=== PATIENT | female | born 1960 | race Caucasian/White ===

== ENCOUNTER 2018-09-30 09:04 | Observation (INO) ==
[2018-09-30] MEDS ORDERED: Ondansetron 4 MG/2 ML VIAL IVP ONE ×2 (09:26→10:27)
[2018-09-30] MEDS ORDERED: Ketorolac 15 MG/ML VIAL IVP ONE ×2 (09:26→21:13)
[2018-09-30] MEDS ORDERED: 0.9 % Sodium Chloride 1,000 ML IVC ONE (09:26)
--- NOTE | 2018-09-30 09:29 | Emergency Department Note ---
Disposition Clinical Impression: Small bowel obstruction Disposition: Admitted As Inpatient Condition: Fair Time of Disposition: 12:30 General Adult HPI - General Chief complaint: ED Nausea/Vomiting/Diarrhea Stated complaint: vomiting x3 days Time Seen by Provider: 09/30/18 09:06 Source: patient, family Limitations: no limitations Nursing Notes Reviewed: Yes Vital Signs Reviewed: Yes - History of Present Illness HPI Narrative: 58-year-old female presents with abdominal pain, nausea vomiting, and diarrhea for 3 days. Patient reported diffuse constant abdominal pain. She vomited multiple times whenever she tried to eat or drink. She reported dark color watery diarrhea 5-6 times a day. No chills and a fever. Surgical history including appendiectomy, cholecystectomy and hysterectomy. Patient had partial small bowel obstruction in 2018. Onset (ago): day(s) (3) Location: abdomen Pain Scale: 7 - Related Data Home Medications Medication Instructions Recorded Confirmed LORazepam [Ativan] 1 mg PO BID 07/28/15 09/30/18 Vortioxetine Hydrobromide 10 mg PO DAILY 03/17/17 09/30/18 [Trintellix] Previous Rx's Medication Instructions Recorded Albuterol Sulfate [Proventil Hfa] 6.7 gm IH Q4H PRN #1 [email or web address] 09/28/17 Allergies Allergy/AdvReac Type Severity Reaction Status Date / Time Warfarin Allergy Severe See Verified 03/17/17 20:34 Comments trazodone Allergy Unknown Swelling Verified 03/17/17 20:34 of Lip/Tongue/Throat gabapentin [From Neurontin] Allergy Dizziness Verified 03/17/17 20:34 nalbuphine [From Nubain] Allergy Irritable Verified 03/17/17 20:34 Naloxone [From Narcan] Allergy Rash Verified 03/17/17 20:34 acetaminophen [From Tylenol] AdvReac Unknown cannot Verified 03/17/17 20:34 take due to status of liver Constitutional: Denies: fever, chills Eyes: Denies: eye pain ENT ED: Denies: ear pain Cardiovascular: Denies: chest pain Respiratory: Denies: cough Gastrointestinal: Reports: abdominal pain, nausea, vomiting, diarrhea Genitourinary: Denies: urgency Musculoskeletal: Denies: back pain Integumentary: Denies: rash Neurological: Denies: headache Psychiatric: Denies: anxiety Endocrine: Denies: fatigue Hematological/Lymphatic: Denies: easy bleeding Allergic/Immunologic: Denies: facial swelling Past Medical History - Past Medical History Medical history: Reports: COPD, renal disease Surgical history: Reports: appendectomy, cholecystectomy (2009), hysterectomy (Total 1989), knee replacement, other (Bowel surgery ??) Psychiatric history: Reports: anxiety, ADHD, depression [employer]CIAL [employer]ENT history: Reports: non-contributory - Social History Smoking Status: Current every day smoker Smokeless Tobacco Status: No Alcohol use: Reports: none Drug use: Reports: none Physical Exam - General Limitations: no limitations General appearance: alert, in no apparent distress - Head Head exam: atraumatic - Eye Eye exam: Present: normal appearance - ENT ENT exam: normal exam - Neck Neck exam: Present: normal inspection - Chest Chest inspection: Present: normal inspection - Respiratory Respiratory exam: Present: normal lung sounds bilaterally - Cardiovascular Cardiovascular exam: Present: regular rate - Abdominal Exam Abdominal exam: Present: soft, tenderness Abdominal tenderness: Present: RLQ, LLQ - Extremities Exam Extremities exam: Present: normal inspection, full ROM. Absent: tenderness - Back Exam Back exam: Present: normal inspection, full ROM. Absent: tenderness - Neurological Exam Neurological exam: Present: alert, oriented X3 - Psychiatric Psychiatric exam: Present: normal affect - Skin Skin exam: Present: warm, intact Course Vital Signs Temperature 97.6 F 09/30/18 09:06 Pulse Rate 99 09/30/18 09:06 Respiratory Rate 16 09/30/18 09:06 Blood Pressure 190/119 09/30/18 09:06 O2 Sat by Pulse Oximetry 97 09/30/18 09:06 Temperature 99.8 F H 09/30/18 14:36 Pulse Rate 76 09/30/18 14:36 Respiratory Rate 16 09/30/18 14:36 Blood Pressure 179/98 09/30/18 14:36 O2 Sat by Pulse Oximetry 95 09/30/18 14:36 Oxygen Delivery Oxygen Delivery Room Air Medical Decision Making - [facility] Narrative Medical decision making narrative: 58 year old female with history of HIV, hypotension, stroke presents with abdominal pain, nausea, vomiting, diarrhea for 3 days. surgical history of appendiectomy, cholecystectomy and hysterectomy. Pt had partial small bowel ob struction last year. Pt is not on HIV medications. Pt denied taking any medication on daily base. Physical exam: bowel sounds normal, abdomen soft, generalized tender to palpation. Labs: white cell 11, slightly elevated, lipase normal, cmp unremarkable. abdomen ct indicated developing small bowel ob struction. Spoke with general surgeon: Dr. Russo. He suggested to admit pt to medical services. He will see the patient today. Spoke with Hospitalist Dr. Abernathy. Pt is accepted. NG tube inserted in ER. Dr. Clay has seen the patient and agrees the above plan. - Lab Data Lab results reviewed: Yes I reviewed the patient's lab results. Result diagrams: 09/30/18 09:56 09/30/18 09:56 Lab Results 09/30/18 09/30/18 09/30/18 Range/Units 09:31 09:31 09:56 WBC 11.2 H (4.3-11.1) K/mcL RBC 4.97 (3.82-4.97) M/mcL Hgb 16.7 H (11.5-15.4) g/dL Hct 47.8 H (35.3-44.9) % MCV 96.2 (83.0-100.0) fL MCH 33.6 H (28.0-33.3) pg MCHC 34.9 (31.6-35.5) g/dL RDW 12.5 (11.5-14.5) % Plt Count 240 (140-400) K/mcL MPV 10.0 (9.4-12.4) fL Immature Gran % 0.4 (0-4) % Seg Neutrophils % 82.8 % Lymphocytes % 12.2 % Monocytes % 4.2 % Eosinophils % 0.0 % Basophils % 0.4 % Neutrophils # 9.2 H (1.6-8.9) K/mcL Lymphocytes # 1.4 (0.6-4.6) K/mcL Monocytes # 0.5 (0.0-1.3) K/mcL Eosinophils # 0.0 (0.0-0.6) K/mcL Basophils # 0.0 (0.0-0.2) K/mcL PT (9.4-12.1) Seconds INR Sodium (136-145) mEq/L Potassium (3.5-5.1) mEq/L Chloride (98-107) mEq/L Carbon Dioxide (23-29) mEq/L BUN (6-20) mg/dL Creatinine (0.60-1.20) mg/dL Est GFR ( Amer) (> 60) Est GFR (Non-Af Amer) (> 60) BUN/Creatinine Ratio (6-26) Glucose (70-105) mg/dL Calculated Osmolality (280-300) Calcium (8.6-10.3) mg/dL Venous Ioniz Calcium (1.15-1.35) mmol/L Total Bilirubin (0.3-1.0) mg/dL AST (13-39) Units/L ALT (7-52) Units/L Alkaline Phosphatase (34-104) Units/L Serum Total Protein (6.4-8.9) g/dL Albumin (3.5-5.7) g/dL Globulin (2.4-3.5) g/dL Albumin/Globulin Ratio (1.1-2.2) Lipase (11-82) Units/L PTH Intact (10.0-65.0) pg/ml Urine Color Dark Yellow (Yellow) Urine Clarity Clear (Clear) Urine pH 6.0 (5.0-8.0) pH Units Ur Specific [place] 1.024 (1.010-1.025) Urine Protein 100 H (Neg-Trace) mg/dL Urine Glucose (UA) Normal (Normal) mg/dL Urine Ketones Trace H (Negative) mg/dL Urine Blood Negative (Negative) Urine Nitrite Negative (Negative) Urine Bilirubin Small H (Negative) Urine Urobilinogen Normal (Normal) mg/dL Ur Leukocyte Esterase Negative (Negative) Urine Microscopic RBC 0-3 (0-3) per hpf Urine Microscopic WBC 0-3 (0-3) per hpf Ur Squamous Epith Cells Many H (None-Few) per lpf Urine Bacteria None Seen (None-Few) per hpf Hyaline Casts None Seen (None-Few) per lpf Ur Culture Indicated? NO (NO) Urine Opiates Screen Positive H (Bkvnot=427) ng/mL Ur Barbiturates Screen Negative (Cexrmc=457) ng/mL Ur Phencyclidine Scrn Negative (Cutoff=25) ng/mL Ur Amphetamines Screen Positive H (Yaolqs=5306) ng/mL U Benzodiazepines Scrn Negative (Gudxri=274) ng/mL Urine Cocaine Screen Negative (Cutoff= 300) ng/mL U Marijuana (THC) Screen Negative (Cutoff = 50) ng/mL Ur Drug Screen Interp See Below 09/30/18 09/30/18 09/30/18 Range/Units 09:56 09:56 09:56 WBC (4.3-11.1) K/mcL RBC (3.82-4.97) M/mcL Hgb (11.5-15.4) g/dL Hct (35.3-44.9) % MCV (83.0-100.0) fL MCH (28.0-33.3) pg MCHC (31.6-35.5) g/dL RDW (11.5-14.5) % Plt Count (140-400) K/mcL MPV (9.4-12.4) fL Immature Gran % (0-4) % Seg Neutrophils % % Lymphocytes % % Monocytes % % Eosinophils % % Basophils % % Neutrophils # (1.6-8.9) K/mcL Lymphocytes # (0.6-4.6) K/mcL Monocytes # (0.0-1.3) K/mcL Eosinophils # (0.0-0.6) K/mcL Basophils # (0.0-0.2) K/mcL PT 10.6 (9.4-12.1) Seconds INR 0.9 Sodium 139 (136-145) mEq/L Potassium 3.8 (3.5-5.1) mEq/L Chloride 100 (98-107) mEq/L Carbon Dioxide 24 (23-29) mEq/L BUN 22 H (6-20) mg/dL Creatinine 1.02 (0.60-1.20) mg/dL Est GFR ( Amer) > 60 (> 60) Est GFR (Non-Af Amer) 55 L (> 60) BUN/Creatinine Ratio 22 (6-26) Glucose 115 H (70-105) mg/dL Calculated Osmolality 292 (280-300) Calcium 10.8 H (8.6-10.3) mg/dL Venous Ioniz Calcium (1.15-1.35) mmol/L Total Bilirubin 0.5 (0.3-1.0) mg/dL AST 19 (13-39) Units/L ALT 16 (7-52) Units/L Alkaline Phosphatase 134 H (34-104) Units/L Serum Total Protein 7.9 (6.4-8.9) g/dL Albumin 4.6 (3.5-5.7) g/dL Globulin 3.3 (2.4-3.5) g/dL Albumin/Globulin Ratio 1.4 (1.1-2.2) Lipase 28 (11-82) Units/L PTH Intact 34.9 (10.0-65.0) pg/ml Urine Color (Yellow) Urine Clarity (Clear) Urine pH (5.0-8.0) pH Units Ur Specific [place] (1.010-1.025) Urine Protein (Neg-Trace) mg/dL Urine Glucose (UA) (Normal) mg/dL Urine Ketones (Negative) mg/dL Urine Blood (Negative) Urine Nitrite (Negative) Urine Bilirubin (Negative) Urine Urobilinogen (Normal) mg/dL Ur Leukocyte Esterase (Negative) Urine Microscopic RBC (0-3) per hpf Urine Microscopic WBC (0-3) per hpf Ur Squamous Epith Cells (None-Few) per lpf Urine Bacteria (None-Few) per hpf Hyaline Casts (None-Few) per lpf Ur Culture Indicated? (NO) Urine Opiates Screen (Emeapw=433) ng/mL Ur Barbiturates Screen (Bszhyn=940) ng/mL Ur Phencyclidine Scrn (Cutoff=25) ng/mL Ur Amphetamines Screen (Vvnbbk=4890) ng/mL U Benzodiazepines Scrn (Afsico=498) ng/mL Urine Cocaine Screen (Cutoff= 300) ng/mL U Marijuana (THC) Screen (Cutoff = 50) ng/mL Ur Drug Screen Interp 09/30/18 Range/Units 13:02 WBC (4.3-11.1) K/mcL RBC (3.82-4.97) M/mcL Hgb (11.5-15.4) g/dL Hct (35.3-44.9) % MCV (83.0-100.0) fL MCH (28.0-33.3) pg MCHC (31.6-35.5) g/dL RDW (11.5-14.5) % Plt Count (140-400) K/mcL MPV (9.4-12.4) fL Immature Gran % (0-4) % Seg Neutrophils % % Lymphocytes % % Monocytes % % Eosinophils % % Basophils % % Neutrophils # (1.6-8.9) K/mcL Lymphocytes # (0.6-4.6) K/mcL Monocytes # (0.0-1.3) K/mcL Eosinophils # (0.0-0.6) K/mcL Basophils # (0.0-0.2) K/mcL PT (9.4-12.1) Seconds INR Sodium (136-145) mEq/L Potassium (3.5-5.1) mEq/L Chloride (98-107) mEq/L Carbon Dioxide (23-29) mEq/L BUN (6-20) mg/dL Creatinine (0.60-1.20) mg/dL Est GFR ( Amer) (> 60) Est GFR (Non-Af Amer) (> 60) BUN/Creatinine Ratio (6-26) Glucose (70-105) mg/dL Calculated Osmolality (280-300) Calcium (8.6-10.3) mg/dL Venous Ioniz Calcium 1.15 (1.15-1.35) mmol/L Total Bilirubin (0.3-1.0) mg/dL AST (13-39) Units/L ALT (7-52) Units/L Alkaline Phosphatase (34-104) Units/L Serum Total Protein (6.4-8.9) g/dL Albumin (3.5-5.7) g/dL Globulin (2.4-3.5) g/dL Albumin/Globulin Ratio (1.1-2.2) Lipase (11-82) Units/L PTH Intact (10.0-65.0) pg/ml Urine Color (Yellow) Urine Clarity (Clear) Urine pH (5.0-8.0) pH Units Ur Specific [place] (1.010-1.025) Urine Protein (Neg-Trace) mg/dL Urine Glucose (UA) (Normal) mg/dL Urine Ketones (Negative) mg/dL Urine Blood (Negative) Urine Nitrite (Negative) Urine Bilirubin (Negative) Urine Urobilinogen (Normal) mg/dL Ur Leukocyte Esterase (Negative) Urine Microscopic RBC (0-3) per hpf Urine Microscopic WBC (0-3) per hpf Ur Squamous Epith Cells (None-Few) per lpf Urine Bacteria (None-Few) per hpf Hyaline Casts (None-Few) per lpf Ur Culture Indicated? (NO) Urine Opiates Screen (Qbgjzw=994) ng/mL Ur Barbiturates Screen (Ullrmn=065) ng/mL Ur Phencyclidine Scrn (Cutoff=25) ng/mL Ur Amphetamines Screen (Exzboi=0749) ng/mL U Benzodiazepines Scrn (Qllgfr=779) ng/mL Urine Cocaine Screen (Cutoff= 300) ng/mL U Marijuana (THC) Screen (Cutoff = 50) ng/mL Ur Drug Screen Interp - Radiology Data Radiology results reviewed: Yes I reviewed the patient's radiology results. HISTORY: ORDERING SYSTEM PROVIDED HISTORY: abd pain FINDINGS: Lower Chest: No evidence of pneumonia or other acute findings. Organs: No non contrast evidence of acute process of the organs of the abdomen. No evidence of pancreatitis. No ureteral stone or hydronephrosis. Exophytic cyst of the right kidney measuring 2.5 cm. GI/Bowel: There is fluid filled dilation of multiple proximal small bowel loops, with dilation up to 4.7 cm. There is distal small bowel collapse. The colon is collapsed as well. Pelvis: No acute abnormality of the pelvis. Normal appearance of the bladder. Peritoneum/Retroperitoneum: No free air, free fluid or abscess. Bones/Soft Tissues: No fracture or other acute osseous process. CT/CT abd pelvis wo no iv no oral IMPRESSION: Findings suspicious for developing distal small bowel obstruction. D/ / Salinas Alford MD / Salinas Alford MD Interpreting Provider: Salinas Alford MD Attestation Statement - Attestation Attestation: Patient was seen with physician contact center assistant. I reviewed the history, physical, assessment and plan, and agree with the findings. I also personally evaluated this patient and had [id number] time with this patient. 58-year-old female presents emergency department with nausea vomiting abdominal pain for last 3 days. Progressively getting worse. Not able keep anything down. Came in for evaluation treatment. No specific areas of the abdomen are painful. She says a crampy pain that generally associated with immediate vomiting. Denies diarrhea. Denies blood in vomit or stool. No fevers or chills. Denies chest pain or short of breath. Review of systems as above mid are negative. Physical exam vital signs were stable but she was hypertensive. ENT is unremarkable. Heart regular rhythm and rate. Lungs clear. Abdomen is soft no guarding rigidity. Diffusely tender. No masses. Neurologically intact. Skin no rashes. Extremities unremarkable. Psych normal. ED course. CT scan will be obtained. Labs are largely unremarkable. Nausea was controlled. Patient was given IV hydration and nausea medicine. Hemodyna mically she was improved throughout her stay. CT scan however revealed a developing small bowel obstruction. We consult surgery recommended admission to the hospitalist service. NG tube was placed. We contacted the hospitalist agreed to accept the patient for admission. We did treat the patient's hypertension with a dose of hydralazine. Hemodynamically otherwise the patient remained stable while here. She will be admitted to the hospitalist service for further evaluation and treatment. Agree with the physician contact center assistant assessment and plan.
[2018-09-30 09:45] LABS: Bilirubin,Urine Small (Negative); Blood,Urine Negative (Negative); Clarity,Urine Clear (Clear); Color,Urine Dark Yellow (Yellow); Glucose,Urine (UA) Normal (Normal); Ketones,Urine Trace mg/dL (Negative); Leukocyte Esterase,Urine Negative (Negative); Nitrite,Urine Negative (Negative); Protein,Urine 100 mg/dL (Neg-Trace); Specific Gravity,Urine 1.024 (1.010-1.025); Urobilinogen,Urine Normal (Normal)
[2018-09-30 09:47] LABS: Bacteria,Urine None Seen per hpf (None-Few); Hyaline Casts,Urine None Seen per lpf (None-Few); RBC,Urine 0-3 per hpf (0-3); Squamous Epithelial Cell,Urine Many per lpf (None-Few); WBC,Urine 0-3 per hpf (0-3)
[2018-09-30 10:19] LABS: Basophils % 0.4 %; Hematocrit 47.8 % (35.3-44.9); Hemoglobin 16.7 g/dL (11.5-15.4); Immature Granulocytes % 0.4 % (0-4); Lymphocytes # 1.4 K/mcL (0.6-4.6); Lymphocytes % 12.2 %; Mean Corpuscular HGB Conc 34.9 g/dL (31.6-35.5); Mean Corpuscular Hemoglobin 33.6 pg (28.0-33.3); Mean Corpuscular Volume 96.2 fL (83.0-100.0); Monocytes # 0.5 K/mcL (0.0-1.3); Monocytes % 4.2 %; Neutrophils # 9.2 K/mcL (1.6-8.9); Platelet Count 240 K/mcL (140-400); Red Blood Count 4.97 M/mcL (3.82-4.97); Red Cell Distribution Width 12.5 % (11.5-14.5); Segmented Neutrophils % 82.8 %; White Blood Count 11.2 K/mcL (4.3-11.1)
[2018-09-30 10:33] LABS: Alanine Aminotransferase 16 Units/L (7-52); Albumin 4.6 g/dL (3.5-5.7); Albumin/Globulin Ratio 1.4 (1.1-2.2); Alkaline Phosphatase 134 Units/L (34-104); Aspartate Amino Transferase 19 Units/L (13-39); BUN/Creatinine Ratio 22 (6-26); Bilirubin,Total 0.5 mg/dL (0.3-1.0); Blood Urea Nitrogen 22 mg/dL (6-20); Calcium 10.8 mg/dL (8.6-10.3); Carbon Dioxide 24 mEq/L (23-29); Chloride 100 mEq/L (98-107); Globulin 3.3 g/dL (2.4-3.5); Glucose 115 mg/dL (70-105); Lipase 28 Units/L (11-82); Osmolality,Calculated 292 (280-300); Potassium 3.8 mEq/L (3.5-5.1); Sodium 139 mEq/L (136-145); Total Protein 7.9 g/dL (6.4-8.9); eGFR For African Americans > 60 (> 60); eGFR For Non-African Americans 55 (> 60)
[2018-09-30 10:51] LABS: Amphetamine Screen,Urine Positive ng/mL (Cutoff=1000); Barbiturate Screen,Urine Negative ng/mL (Cutoff=200)
[2018-09-30 10:55] LABS: Benzodiazepines Screen,Urine Negative ng/mL (Cutoff=300); Cannabinoid Screen,Urine Negative ng/mL (Cutoff = 50); Cocaine Screen,Urine Negative ng/mL (Cutoff= 300)
[2018-09-30 10:56] LABS: Opiate Screen,Urine Positive ng/mL (Cutoff=300); Phencyclidine Screen,Urine Negative ng/mL (Cutoff=25)
[2018-09-30] MEDS ORDERED: *HR* FentaNYL (PF) 100 MCG/2 ML VIAL IVP ONE (11:19)
[2018-09-30 11:51] LABS: INR 0.9; Prothrombin Time 10.6 Seconds (9.4-12.1)
--- NOTE | 2018-09-30 12:30 | Internal Med History&Physical ---
Date of Encounter: 09/30/18 Time of Encounter: 12:26 Internal Medicine - H&P: HPI Chief complaint: Abdomunal pain History of present illness: 58-year-old female presents emergency department with persistent 3 days history of abdominal pain associated with persistent nausea , vomiting or the extent that she cannot keep anything down. The patient described the abdominal pain as crampy in character with no radiation no alleviating factor or aggravating factor. The patient stated that she was initially vomiting food content and later become just yellowish fluid. The patient denies blood per rectum. She denies fever, chills, chest pain, shortness of breath, orthopnea, paroxysmal nocturnal dyspnea, progressive worsening of lower extremity edema. It was noted that the patient blood pressure during her ER stay was around 195/95, she denies history of hypertension. The patient stated that she has history of HIV and she should be on medication, however she stopped taking them 6 months ago, she believes that she is now HIV negative. The patient has history of cholecystectomy, appendicectomy and hysterectomy. CT scan of the abdomen was obtained and revealed possibility of small bowel obstruction. Surgery was consulted and they recommended NG tube placement and to admit the patient to the hospitalist, surgery or see the patient in consult for further evaluation and management. Past Med Surg Social Fam HX - Past Medical History Medical history: COPD, renal disease Additional medical history: cellulitis, clots. SVC syndrome, HIV + Psychiatric history: anxiety, ADHD, depression - Past Surgical History Surgical History: appendectomy, cholecystectomy (2009), hysterectomy (Total 1989), knee replacement, other (Bowel surgery ??) Additional surgical history: seven knee surgeries - Social History Smoking Status: Current every day smoker Smokeless Tobacco Status: No Alcohol use: none Drug use: none Internal Medicine - H&P: Meds LORazepam [Ativan] 1 mg PO BID 07/28/15 [History] Vortioxetine Hydrobromide [Trintellix] 10 mg PO DAILY 03/17/17 [History] Albuterol Sulfate [Proventil Hfa] 2 puff IH Q4H PRN 09/30/18 [History] Allergy/AdvReac Type Severity Reaction Status Date / Time Warfarin Allergy Severe See Verified 03/17/17 20:34 Comments trazodone Allergy Unknown Swelling Verified 03/17/17 20:34 of Lip/Tongue/Throat gabapentin [From Neurontin] Allergy Dizziness Verified 03/17/17 20:34 nalbuphine [From Nubain] Allergy Irritable Verified 03/17/17 20:34 Naloxone [From Narcan] Allergy Rash Verified 03/17/17 20:34 acetaminophen [From Tylenol] AdvReac Unknown cannot Verified 03/17/17 20:34 take due to status of liver All Systems PM: A 10-system review of systems was performed and is negative for pertinent findings except as documented above in the HPI. - Constitutional Vitals: Temp Pulse Resp BP Pulse Ox 97.6 F 71 18 164/94 99 09/30/18 09:06 09/30/18 11:31 09/30/18 11:31 09/30/18 11:31 09/30/18 11:31 General appearance: Present: cachectic, A&O X 3 Exam: ` - Head Head exam: Present: atraumatic, normocephalic - Neck Neck exam general surgery: Present: supple, trachea midline. Absent: lymph adenopathy - Respiratory Respiratory exam: Present: CTAB. Absent: accessory muscle use, rales, rhonchi, wheezes - Cardiovascular Cardiovascular exam: Present: RRR, +S1, +S2. Absent: diastolic murmur, gallop, rubs, systolic murmur - GI/Abdominal GI/Abdominal exam: Present: normal bowel sounds, soft, tenderness, no peritoneal signs. Absent: distended - Extremities Exam Extremities exam: Present: warm, radial pulses palpable and symmetrical. Absent: calf tenderness, cyanotic, pedal edema Internal Med - H&P Results - Labs CBC & Chem 7: 09/30/18 09:56 09/30/18 09:56 Labs: Short CBC 09/30/18 Range/Units 09:56 WBC 11.2 H (4.3-11.1) K/mcL Hgb 16.7 H (11.5-15.4) g/dL Hct 47.8 H (35.3-44.9) % Plt Count 240 (140-400) K/mcL Neutrophils # 9.2 H (1.6-8.9) K/mcL BMP 09/30/18 09:56 Sodium 139 Potassium 3.8 Chloride 100 Carbon Dioxide 24 BUN 22 H Creatinine 1.02 Glucose 115 H Calcium 10.8 H Liver Function 09/30/18 Range/Units 09:56 Total Bilirubin 0.5 (0.3-1.0) mg/dL AST 19 (13-39) Units/L ALT 16 (7-52) Units/L Alkaline Phosphatase 134 H (34-104) Units/L Albumin 4.6 (3.5-5.7) g/dL Urine 09/30/18 Range/Units 09:31 Urine Color Dark Yellow (Yellow) Urine Clarity Clear (Clear) Urine pH 6.0 (5.0-8.0) pH Units Ur Specific [place] 1.024 (1.010-1.025) Urine Protein 100 H (Neg-Trace) mg/dL Urine Glucose (UA) Normal (Normal) mg/dL - Impressions ITS Impressions Abdomen/Pelvis CT 09/30/18 09:23 IMPRESSION: Findings suspicious for developing distal small bowel obstruction. D/ / Salinas Alford MD / Salinas Alford MD Interpreting Provider: Salinas Alford MD Chest X-Ray 09/30/18 11:45 IMPRESSION: Nasogastric tube side port projects over the lower mediastinum, likely within the distal esophagus. Recommend advancing nasogastric tube approximately 10 cm. No acute cardiopulmonary process. The findings were sent to the Radiology Results Communication Center at 12:20 pm on 09/30/2018to be communicated to a licensed caregiver. D/ / Helena Benites MD / Helena Benites MD Interpreting Provider: Helena Benites MD - Assessment and Plan (1) Small bowel obstruction Current Visit: Yes Status: Acute Assessment and plan: The patient presented with crampy abdominal pain associated with nausea and vomiting to the extent that she cannot keep anything down, CT scan of the abdomen was obtained and revealed possibility of small bowel obstruction. Surgery was consulted and they recommended NG tube placement and to admit the patient to the hospitalist, surgery or see the patient in consult for further evaluation and management. NG tube was placed for decompression, continue IV hydration and Pain control. (2) HIV (human immunodeficiency virus infection) Current Visit: No Status: Chronic Assessment and plan: The patient stated that she has history of HIV and she should be on medication, however she stopped taking them 6 months ago, she believes that she is now HIV negative. We will consult ID to resume her HIV management. Qualifiers: Qualified Code(s): B20 - Human immunodeficiency virus [HIV] disease (3) Hepatitis Current Visit: No Status: Chronic (4) Polysubstance abuse Current Visit: No Status: Chronic Assessment and plan: Urine analysis is positive for opioids and amphetamine, will monitor closely for possible withdrawal (5) Tobacco abuse Current Visit: No Status: Chronic (6) DVT prophylaxis Current Visit: Yes Status: Acute Assessment and plan: We will place SCDs (7) Hypercalcemia Current Visit: Yes Status: Acute Assessment and plan: We will obtain ionized calcium, parathyroid hormone, and start IV fluid hydration with isotonic saline. - Time Spent With Patient Total time spent is greater than 50% in coordination of care (as documented) at patient's floor/unit and/or counseling patient:
[2018-09-30] MEDS ORDERED: *HR* Morphine 2 MG/ML SYRINGE IVP ONE ×2 (12:39→15:56)
[2018-09-30] MEDS ORDERED: Naloxone 0.4 MG/ML INJ IVP PRN (12:39)
[2018-09-30 13:05] LABS: VBG Ionized Calcium 1.15 mmol/L (1.15-1.35)
[2018-09-30] MEDS ORDERED: Ondansetron 4 MG/2 ML VIAL IVP PRN (13:14)
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
[2018-09-30] MEDS: 0.9 % Sodium Chloride 1,000 ML IVC SCH ×2 (16:01→23:06)
[2018-09-30] MEDS: Pantoprazole 40 MG VIAL IVP SCH (17:49)
[2018-09-30] MEDS ORDERED: traMADol 50 MG TABLET PO ONE (19:47)
[2018-09-30] MEDS: *HR* Promethazine 25 MG/ML VIAL IVP PRN (20:42)
[2018-10-01] MEDS: *HR* Promethazine 25 MG/ML VIAL IVP PRN ×3 (00:48→17:17)
[2018-10-01] MEDS: Ketorolac 15 MG/ML VIAL IVP PRN ×3 (02:22→17:17)
[2018-10-01] MEDS: Pantoprazole 40 MG VIAL IVP SCH ×2 (05:18→18:30)
[2018-10-01 07:31] LABS: Basophils % 0.4 %; Eosinophils # 0.1 K/mcL (0.0-0.6); Eosinophils % 0.5 %; Hematocrit 42.8 % (35.3-44.9); Immature Granulocytes % 0.2 % (0-4); Lymphocytes # 2.3 K/mcL (0.6-4.6); Lymphocytes % 22.4 %; Mean Corpuscular HGB Conc 34.8 g/dL (31.6-35.5); Mean Corpuscular Hemoglobin 33.7 pg (28.0-33.3); Mean Corpuscular Volume 96.8 fL (83.0-100.0); Mean Platelet Volume 10.2 fL (9.4-12.4); Monocytes # 0.7 K/mcL (0.0-1.3); Platelet Count 192 K/mcL (140-400); Red Blood Count 4.42 M/mcL (3.82-4.97); Red Cell Distribution Width 12.8 % (11.5-14.5); Segmented Neutrophils % 69.5 %; White Blood Count 10.1 K/mcL (4.3-11.1)
[2018-10-01 07:34] LABS: Hemoglobin 14.9 g/dL (11.5-15.4)
[2018-10-01 07:39] LABS: Prothrombin Time 11.2 Seconds (9.4-12.1)
[2018-10-01 07:42] LABS: Activated Partial Thrombo Time 35.3 Seconds (26.0-36.0)
[2018-10-01 07:51] LABS: Alanine Aminotransferase 13 Units/L (7-52); Albumin 3.8 g/dL (3.5-5.7); Albumin/Globulin Ratio 1.5 (1.1-2.2); Alkaline Phosphatase 107 Units/L (34-104); Aspartate Amino Transferase 17 Units/L (13-39); BUN/Creatinine Ratio 22 (6-26); Bilirubin,Total 0.5 mg/dL (0.3-1.0); Blood Urea Nitrogen 20 mg/dL (6-20); Calcium 8.8 mg/dL (8.6-10.3); Carbon Dioxide 23 mEq/L (23-29); Chloride 105 mEq/L (98-107); Chol/HDL Ratio 3.2 (0-4.9); Cholesterol 188 mg/dL (< 200); Globulin 2.6 g/dL (2.4-3.5); Glucose 96 mg/dL (70-105); HDL Cholesterol 59 mg/dL (40-59); LDL Cholesterol,Calculated 107 mg/dL (0-99); Magnesium 1.9 mg/dL (1.6-2.6); Osmolality,Calculated 294 (280-300); Phosphorous 3.1 mg/dL (2.7-4.5); Potassium 3.4 mEq/L (3.5-5.1); Sodium 141 mEq/L (136-145); Total Protein 6.4 g/dL (6.4-8.9); Triglycerides 109 mg/dL (< 150); eGFR For African Americans > 60 (> 60); eGFR For Non-African Americans > 60 (> 60)
--- NOTE | 2018-10-01 10:22 | AcuteCareSurgery Progress Note ---
Date of Encounter: 10/01/18 Time of Encounter: 10:21 - Assessment and Plan (1) Small bowel obstruction Current Visit: Yes Status: Acute Presents with nausea, vomiting, abdominal pain, diarrhea History of partial small bowel obstruction. Prior germinal surgeries include hysterectomy, cholecystectomy, appendectomy Multiple comorbidities-HIV, CVA, CKD stage III, hypertension, DVT, brain aneurysm, chronic pain, anxiety, depression. CT abdomen [id number] dilation of multiple proximal small bowel loops with dilation up to 4.7 cm, distal small bowel collapse, colon is collapsed as well. Findings suspicious for developing distal small bowel obstruction. Benign exam. Unclear if pain secondary to small bowel obstruction versus chronic pain versus gastroenteritis. Continue IV fluids, to DC if patient able to tolerate diet Continue pain control Zofran for nausea Continue to monitor I's and O's Will clamp NG tube Trial clear liquid diet. If the patient able to tolerate, NG tube to be removed. (2) Nausea & vomiting Current Visit: Yes Status: Acute Improved Last episode of vomitus yesterday, continues to be nauseous Suspect secondary to possible small bowel obstruction versus gastroenteritis versus chronic pain Qualifiers: Vomiting type: bilious vomiting Qualified Code(s): R11.14 - Bilious vomiting (3) Abdominal pain Current Visit: Yes Status: Acute Continues to complain of abdominal pain CPAP for management Qualifiers: Abdominal location: periumbilical Qualified Code(s): R10.33 - Periumbilical pain (4) DVT prophylaxis Current Visit: Yes Status: Acute History of DVT SCDs currently, consider sq heparin Subjective Narrative: Patient seen and examined at bedside today. She states that she is still having some left upper quadrant and periumbilical pain. She states that her pain is uncontrolled. She states that she continues to be nauseous however her last episode of vomitus was yesterday. She does admit to passing flatus but no bowel movement at this time. She denies fever, chills, chest pain, shortness of breath, dysuria, calf pain. Objective Vital Signs - Last 8 Hours Temp Pulse Resp BP Pulse Ox 10/01/18 06:53 98.7 F 60 14 170/87 95 10/01/18 03:40 98.6 F 63 16 176/84 95 Intake and Output 09/30/18 10/01/18 10/01/18 23:59 07:59 15:59 Intake Total 1000 / 1999 0 / 0 Output Total 500 / 500 1500 / 1500 Balance 500 / 1500 -1500 / -1500 Intake: IV Fluids 1000 / 1999 0.9 % Sodium Chloride 1,000 ML 1000 / 1000 @ 150 mls/hr IVC .[id number] [facility] Rx #:[id number] Oral 0 / 0 0 / 0 Output: Urine 800 / 800 Gastric Tube Lavage Amount 50 / 50 250 / 250 Right Nare 50 / 50 250 / 250 Gastric Drainage 450 / 450 450 / 450 Other: Meal NPO # Voids 1 Weight 56.6 kg Blood Glucose* 116 119 Patient Weight 10/01/18 23:59 Weight 56.6 kg - General physical appearance well developed (Mild distress), well nourished - Eyes PERRL, normal ocular movement - ENT normal nares, normal mucosa, no hearing loss, no congestion - Neck Neck exam: no masses, trachea midline, no venous distension - Respiratory normal expansion, normal respiratory effort, clear to percussion, clear to auscultation - Cardiovascular Cardiovascular exam: Present: RRR, no murmurs/rubs/gallops. Absent: JVD - Abdomen Abdomen: Present: bowel sounds present, soft, tender. Absent: distended, guarding, rebound Abdominal Tenderness: LUQ - Integumentary no rash, no growths, no abnormal pigmentation - Neurologic normal coordination, normal sensation - Musculoskeletal normal posture - Psychiatric oriented to time, oriented to person, oriented to place, speech is normal, memory intact - Labs 10/01/18 06:59 10/01/18 06:59 Diabetes panel 09/30/18 10/01/18 Range/Units 09:56 06:59 Sodium 139 141 (136-145) mEq/L Potassium 3.8 3.4 L (3.5-5.1) mEq/L Chloride 100 105 (98-107) mEq/L Carbon Dioxide 24 23 (23-29) mEq/L BUN 22 H 20 (6-20) mg/dL Creatinine 1.02 0.91 (0.60-1.20) mg/dL Glucose 115 H 96 (70-105) mg/dL Calcium 10.8 H 8.8 (8.6-10.3) mg/dL AST 19 17 (13-39) Units/L ALT 16 13 (7-52) Units/L Alkaline Phosphatase 134 H 107 H (34-104) Units/L Albumin 4.6 3.8 (3.5-5.7) g/dL Triglycerides 109 (< 150) mg/dL HDL Cholesterol 59 (40-59) mg/dL Calcium panel 09/30/18 10/01/18 Range/Units 09:56 06:59 Calcium 10.8 H 8.8 (8.6-10.3) mg/dL Phosphorus 3.1 (2.7-4.5) mg/dL Albumin 4.6 3.8 (3.5-5.7) g/dL Pituitary panel 09/30/18 10/01/18 Range/Units 09:56 06:59 Sodium 139 141 (136-145) mEq/L Potassium 3.8 3.4 L (3.5-5.1) mEq/L Chloride 100 105 (98-107) mEq/L Carbon Dioxide 24 23 (23-29) mEq/L BUN 22 H 20 (6-20) mg/dL Creatinine 1.02 0.91 (0.60-1.20) mg/dL Glucose 115 H 96 (70-105) mg/dL Calcium 10.8 H 8.8 (8.6-10.3) mg/dL Adrenal panel 09/30/18 10/01/18 Range/Units 09:56 06:59 Sodium 139 141 (136-145) mEq/L Potassium 3.8 3.4 L (3.5-5.1) mEq/L Chloride 100 105 (98-107) mEq/L Carbon Dioxide 24 23 (23-29) mEq/L BUN 22 H 20 (6-20) mg/dL Creatinine 1.02 0.91 (0.60-1.20) mg/dL Glucose 115 H 96 (70-105) mg/dL Calcium 10.8 H 8.8 (8.6-10.3) mg/dL Total Bilirubin 0.5 0.5 (0.3-1.0) mg/dL AST 19 17 (13-39) Units/L ALT 16 13 (7-52) Units/L Alkaline Phosphatase 134 H 107 H (34-104) Units/L Albumin 4.6 3.8 (3.5-5.7) g/dL Consult Discharge Plan - Plan Referrals: Elfego Dorantes MD [Primary Care Provider] -
--- NOTE | 2018-10-01 10:22 | Internal Med Progress Note ---
Hospitalist Progress Note - Encounter Date of Encounter: 10/01/18 Time of Encounter: 09:21 - Subjective Interval History: Patient seen and examined this morning it was up in no acute overnight events. Is not complaining of significant abdominal pain and right leg pain. Has an NG tube with about 450 mL of drainage recorded. Denies any fevers or chills. Is passing gas but has not had bowel movement. - Exam Vitals: Temp Pulse Resp BP Pulse Ox 98.7 F 60 14 170/87 95 10/01/18 06:53 10/01/18 06:53 10/01/18 06:53 10/01/18 06:53 10/01/18 06:53 Exam: General: In mild distress. Respiratory exam: CTAB. no accessory muscle use, rales, rhonchi, wheezes Cardiovascular exam: RRR, +S1, +S2. no murmur, gallop, rubs. GI/Abdominal exam: Generalized tenderness cristel in RLQ,RUQ, LLQ. Non-distended, normal bowel sounds, soft, no peritoneal signs. surgical scars noted. Extremities exam: no pedal edema, pulses palpable in b/l lower extremities. no calf tenderness Neurological exam: CN II-XII intact, AO X3, no focal deficits. Skin exam: No skin rash - Assessment and Plan (1) HIV (human immunodeficiency virus infection) Current Visit: No Status: Chronic (2) Polysubstance abuse Current Visit: No Status: Chronic (3) DVT prophylaxis Current Visit: Yes Status: Acute (4) Hepatitis Current Visit: No Status: Chronic (5) Tobacco abuse Current Visit: No Status: Chronic (6) Small bowel obstruction Current Visit: Yes Status: Acute (7) Hypercalcemia Current Visit: Yes Status: Acute - Summary of Assessment and Plan Summary of Assessment and Plan: Assessment Acute Small bowel obstruction HIV Hypercalcemia Positive utox for amephatamine. Chronic Chronic opiate use Smoker COPD Anxiety, depression Chronic pain ?HIV h/o DVT Plan - CT abd/pelvis with finding suspicious of distal small bowel obstruction. Previous multiple abdominal surgery including hysterectomy, cholecystectomy, appendectomy - Patient with NGT. Surgery following. Progress diet per surgery. c/w IVF till then. symptomatic control - Patient in on morphine at home for chronic pain, confirmed by pharmacist. Patient c/w significant abdominal pain and worried about withdrawal. currently NPO. Will start prn fentanyl small dose. Discussed effect on gut motility. Some suspicious of drug abuse with positive utox for amphetamine noted on 2016 admission as well. Patient denying it. will avoid any benzodiazapine and not prescribe opiate on discharge and allow f/u with pain management. - start prn hydralazine for Blood pressure. patient denies being on home medication. Currently being confirmed. Will resume when taking PO. - hypercalcemia resolved. Possibly related to dehyration. Normal PTH and ionized ca. - Unclear h/o HIV. Positive HSV noted. Previously on HIV medications now stopped. negative RNA levels noted this year in August with cd4 in 863 in 10/2017. ID consulted. Medications being confirmed. - Discussed smoking cessation. Not in COPD exacerbation - SCDs for DVT. - Time Spent with Patient Total time spent is greater than 50% in coordination of care (as documented) at patient's floor/unit and/or counseling patient: Internal Medicine: Result - Labs CBC & Chem 7: 10/01/18 06:59 10/01/18 06:59 Labs: Short CBC 10/01/18 Range/Units 06:59 WBC 10.1 (4.3-11.1) K/mcL Hgb 14.9 D (11.5-15.4) g/dL Hct 42.8 (35.3-44.9) % Plt Count 192 (140-400) K/mcL Neutrophils # 7.0 (1.6-8.9) K/mcL BMP 09/30/18 10/01/18 09:56 06:59 Sodium 139 141 Potassium 3.8 3.4 L Chloride 100 105 Carbon Dioxide 24 23 BUN 22 H 20 Creatinine 1.02 0.91 Glucose 115 H 96 Calcium 10.8 H 8.8 Liver Function 09/30/18 10/01/18 Range/Units 09:56 06:59 Total Bilirubin 0.5 0.5 (0.3-1.0) mg/dL AST 19 17 (13-39) Units/L ALT 16 13 (7-52) Units/L Alkaline Phosphatase 134 H 107 H (34-104) Units/L Albumin 4.6 3.8 (3.5-5.7) g/dL - ABG Interpretation ABG results: PT/INR, D-dimer PT 11.2 Seconds (9.4-12.1) 10/01/18 06:59 - Impressions Impressions Abdomen/Pelvis CT 09/30/18 09:23 IMPRESSION: Findings suspicious for developing distal small bowel obstruction. D/ / Salinas Alford MD / Salinas Alford MD Interpreting Provider: Salinas Alford MD Chest X-Ray 09/30/18 11:45 IMPRESSION: Nasogastric tube side port projects over the lower mediastinum, likely within the distal esophagus. Recommend advancing nasogastric tube approximately 10 cm. No acute cardiopulmonary process. The findings were sent to the Radiology Results [facility] at 12:20 pm on 09/30/2018to be communicated to a licensed caregiver. D/ / Helena Benites MD / Helena Benites MD Interpreting Provider: Helena Benites MD Consult Discharge Plan - Plan Referrals: Elfego Dorantes MD [Primary Care Provider] - __ (1) HIV (human immunodeficiency virus infection) Qualifiers: Qualified Code(s): B20 - Human immunodeficiency virus [HIV] disease
[2018-10-01] MEDS: *HR* FentaNYL (PF) 100 MCG/2 ML VIAL IVP PRN (11:32)
--- NOTE | 2018-10-01 11:51 | Infectious Disease Consult ---
Infectious Disease-Consult - Encounter Date/Time Date of Encounter: 10/01/18 Time of Encounter: 10:00 - Data of Consult Patient: new to practice Reason for consult: HIV management Consult date: 10/01/18 Requesting Physician: Bita Valladares Primary Care Provider: Elfego Dorantes MD - HPI HPI: Mrs. Riddle is a 58-year-old woman who presented to [facility] due to nausea and vomiting on 09/30/18 and was diagnosed with a small bowel obstruction. Infectious disease was consulted today due to patient's long-standing history of HIV for recommendations on management. In short, Ms. Riddle is a 58-year-old woman with history of COPD and renal disease as well as a documented history of HIV and prior AIDS who presented to the emergency department on 09/30/18 due to 3 day history of abdominal pain with persistent nausea and vomiting. This was not associated with any infectious symptoms including fever, chills, sweats. At that time, she was found to have a mild leukocytosis with a WBC 11.2, however her labs were otherwise normal. She had a CT of the abdomen and pelvis at that time which showed suspicious findings for a distal small bowel obstruction. She denied any diarrhea prior to this experience. The patient does have history of HIV/AIDS, with notes of prior infection with pneumocystis pneumonia numerous years ago. She remembers that at that time she had a number of unusual infections that she was told people with normal immune systems don't typically get. The patient does not know when she wa s diagnosed with HIV, however she says that it was quite a while back. She does not know how she got HIV however she suspects that it was from a blood transfusion that she had when she gave . For reference, the patient had a total hysterectomy in 1989. She has been on medication since that time without discontinuing, and has had virtually no problems. It was noted that the patient had stopped taking her medicines approximately 6 months ago, however this apparently is an error. The patient states that she transition to a new medication a couple of months ago for her HIV, and she does not know what the name of it is. She says that she has been undetectable for as long as she can remember. She does have some concerns or suspicions that she does not even have to disease at this point. At the time the patient has no acute complaints. - ROS Review of Systems: Constitutional: Denies fevers, chills, weight loss, generalized fatigue Head/Neck: Denies FRAIRE, neck stiffness EENT: Denies vision changes/blurriness, rhinorrhea, congestion, sore throat CVS: Denies chest pain, palpitations, MCGILL, orthopnea, edema, PND Pulm: Denies SOB, cough, sputum, hemoptysis, wheezing GI: Admits to generalized abdominal pain, nausea, vomiting. Denies diarrhea, constipation, melena. : Denies dysuria, increased frequency, urgency, hematuria Heme: Denies ease of bleeding or bruising MSK: Denies joint pain, limited ROM Skin: Denies rashes, ulcers, color changes Neuro: Denies FRAIRE, paresthesias, focal deficits, ataxia - Results CBC & Chem 7: 10/01/18 06:59 10/01/18 06:59 - Exam Vitals: Temp Pulse Resp BP Pulse Ox 98.7 F 60 14 170/87 95 10/01/18 06:53 10/01/18 06:53 10/01/18 06:53 10/01/18 06:53 10/01/18 06:53 Exam: Gen: Vitals noted. No acute distress. Eyes: anicteric sclerae, moist conjunctivae; no lid-lag; Pupils equal and reactive to light HENT: Atraumatic; oropharynx clear with moist mucous membranes and no mucosal ulcerations; normal hard and soft palate. NG tube in place with no maceration noted. Neck: Trachea midline; supple, no thyromegaly or lymphadenopathy Cardiac: RRR, no murmur, +S1/S2 Pulmonary: CTA bilaterally, no wheezes, rales or rhonchi, equal chest expansion Abdomen: soft, generally tender, no guarding. No masses or hepatosplenomegaly MSK: ROM intact, no joint swelling noted Extremities: no BLE edema, nontender calf, no cyanosis or clubbing Skin: Normal temperature, turgor and texture; no rash, ulcers or subcutaneous nodules Neuro: moves all extremities, no focal deficits. Psych: Appropriate mood and behavior. A&Ox3 LORazepam [Ativan] 1 mg PO BID 07/28/15 [History] Vortioxetine Hydrobromide [Trintellix] 10 mg PO DAILY 03/17/17 [History] Albuterol Sulfate [Proventil Hfa] 2 puff IH Q4H PRN 09/30/18 [History] Dextroamphetamine/Amphetamine [Adderall 20 mg Tablet] 20 mg PO BID 10/01/18 [History] Dolutegravir/Rilpivirine [Juluca 50-25 mg Tablet] 1 tab PO DAILY 10/01/18 [History] Indapamide [Lozol] 1.25 mg PO DAILY 10/01/18 [History] LORazepam [Ativan] 2 mg PO HS 10/01/18 [History] Morphine Sulfate SR (12 HR) [MS Contin] 30 mg PO Q8H 10/01/18 [History] Spironolactone [Aldactone] 12.5 mg PO DAILY 10/01/18 [History] Allergy/AdvReac Type Severity Reaction Status Date / Time Warfarin Allergy Severe See Verified 03/17/17 20:34 Comments trazodone Allergy Unknown Swelling Verified 03/17/17 20:34 of Lip/Tongue/Throat gabapentin [From Neurontin] Allergy Dizziness Verified 03/17/17 20:34 nalbuphine [From Nubain] Allergy Irritable Verified 03/17/17 20:34 Naloxone [From Narcan] Allergy Rash Verified 03/17/17 20:34 acetaminophen [From Tylenol] AdvReac Unknown cannot Verified 03/17/17 20:34 take due to status of liver - Assessment and Plan (1) HIV (human immunodeficiency virus infection) Current Visit: Yes Status: Chronic Chronic history of HIV, undetectable Patient has apparently had HIV for unknown number of years, however it has been a long time She suspects that it was from a transfusion during one of her births, the patient has had a hysterectomy in 1989 She is currently on the medication Juluca per her PCP, recently switched about 2 months ago At this time, no modifications need to be made As there are no IV medications for the management of HIV, the most appropriate option is to continue the patient's home meds when she is able to tolerate PO meds. She should follow-up with PCP when she is out of the hospital. Thank you for involving us in this patient's care, we will sign off at this time. Please call us for any further questions. Qualifiers: HIV symptom status: asymptomatic Qualified Code(s): Z21 - Asymptomatic human immunodeficiency virus [HIV] infection status SNOMED Code(s): 43564444 (2) Small bowel obstruction Current Visit: Yes Status: Acute Small bowel obstruction, presumably secondary to adhesions from prior abdominal surgeries Management per acute-care surgery and primary team This does complicate HIV management as the patient's unable to take oral meds at this time Recommend continuing by mouth meds when she is able SNOMED Code(s): 503145958 (3) Nausea & vomiting Current Visit: Yes Status: Acute Management per primary team Qualifiers: Vomiting type: bilious vomiting Qualified Code(s): R11.14 - Bilious vomiting SNOMED Code(s): 93875801 Past Med Surg Social Fam HX - Past Medical History Medical history: COPD, renal disease Additional medical history: cellulitis, clots. SVC syndrome, HIV + Psychiatric history: anxiety, ADHD, depression - Past Surgical History Surgical History: appendectomy, cholecystectomy (2009), hysterectomy (Total 1989), knee replacement, other (Bowel surgery ??) Additional surgical history: seven knee surgeries - Social History Smoking Status: Current every day smoker Smokeless Tobacco Status: No Alcohol use: none Drug use: none Consult Discharge Plan - Plan Referrals: Elfego Dorantes MD [Primary Care Provider] - - Attending Attestation I examined this patient and my medical decision-making was reviewed with the Resident Physician. I agree with the documented findings, disposition and treatment plan as described except to the extent set forth below. This is an addendum to original report dictated by resident physician. Please refer to resident's note for full details. Patient is a 58-year-old woman who was diagnosed with HIV AIDS back in the early . Patient does not know how she acquired. She is only sexually active with her and has been negative she never cheated on him. Patient also denies any history of IV drug use. She thinks it was due to blood transfusion. Patient was on Atripla until recently where she was switched to JULUCA. I did speak with Dr. Dorantes and went over the patient's history. Assessment and plan: 1.HIVviral load undetectable since 2013 with CD4 over 500 very well controlled currently on Juluca. 2.Small bowel obstruction etiology not clear could be due to adhesions from previous surgeries 3.Severe anxiety. Patient usually on SSRI and Ativan 1 mg by mouth twice a day and every 2 mg daily at bedtime. Patient has not been taking any of her medications because she is nothing by mouth 4.Tobacco abuse she smokes 2 packs a day Recommendations: Okay to resume her HIV medication. We do not carry JUluca so patient was instructed to get her medications from home and restarted Started the patient on nicotine patch 21 mg daily at bedtime Patient is very irritable and going through withdrawals from stopping the Ativan and the SSRI, I will start the patient on Ativan 1 mg IV every 12 hours [id number] I called Dr. Benites and told him that I started and he was okay with that.
[2018-10-01] MEDS: Nicotine 21 MG PATCH.TD24 TD SCH (18:38)
[2018-10-01] MEDS ORDERED: Promethazine 12.5 MG in 0.9 % Sodium Chloride 50 ML IVPB PRN (20:00)
[2018-10-01] MEDS ORDERED: traMADol 50 MG TABLET PO ONE (21:53)
[2018-10-01] MEDS ORDERED: *HR* LORazepam 1 MG TABLET PO ONE (22:31)
[2018-10-01] MEDS: *HR* LORazepam 2 MG/ML VIAL IVP SCH (23:31)
[2018-10-02] MEDS: *HR* FentaNYL (PF) 100 MCG/2 ML VIAL IVP PRN (00:08)
[2018-10-02] MEDS ORDERED: traMADol 50 MG TABLET PO ONE (04:45)
[2018-10-02] MEDS: *HR* LORazepam 2 MG/ML VIAL IVP SCH (06:16)
[2018-10-02] MEDS: Pantoprazole 40 MG VIAL IVP SCH ×2 (06:19→18:09)
[2018-10-02 07:39] LABS: Basophils # 0.1 K/mcL (0.0-0.2); Basophils % 0.6 %; Eosinophils # 0.2 K/mcL (0.0-0.6); Eosinophils % 1.8 %; Hematocrit 42.3 % (35.3-44.9); Hemoglobin 14.8 g/dL (11.5-15.4); Immature Granulocytes % 0.3 % (0-4); Lymphocytes # 1.9 K/mcL (0.6-4.6); Lymphocytes % 22.1 %; Mean Corpuscular Hemoglobin 33.3 pg (28.0-33.3); Mean Corpuscular Volume 95.3 fL (83.0-100.0); Monocytes # 0.8 K/mcL (0.0-1.3); Neutrophils # 5.8 K/mcL (1.6-8.9); Platelet Count 183 K/mcL (140-400); Red Blood Count 4.44 M/mcL (3.82-4.97); Red Cell Distribution Width 12.3 % (11.5-14.5); Segmented Neutrophils % 66.2 %; White Blood Count 8.8 K/mcL (4.3-11.1)
[2018-10-02 07:43] LABS: BUN/Creatinine Ratio 24 (6-26); Blood Urea Nitrogen 19 mg/dL (6-20); Calcium 9.2 mg/dL (8.6-10.3); Carbon Dioxide 23 mEq/L (23-29); Chloride 103 mEq/L (98-107); Glucose 97 mg/dL (70-105); Osmolality,Calculated 284 (280-300); Potassium 3.1 mEq/L (3.5-5.1); Sodium 136 mEq/L (136-145); eGFR For African Americans > 60 (> 60); eGFR For Non-African Americans > 60 (> 60)
[2018-10-02] MEDS ORDERED: MORPHINE SUL Oral CONC 10 MG/0.5 ML ORAL.SYG SL PRN (08:33)
[2018-10-02] MEDS ORDERED: Ketorolac 15 MG/ML VIAL IVP PRN (08:51)
[2018-10-02] MEDS ORDERED: *HR* LORazepam 1 MG TABLET PO SCH ×3 (09:00→21:00)
[2018-10-02] MEDS: Nicotine 21 MG PATCH.TD24 TD SCH (09:32)
[2018-10-02] MEDS: Spironolactone 25 MG TABLET PO SCH (09:32)
[2018-10-02] MEDS: MORPHINE SUL Oral CONC 10 MG/0.5 ML ORAL.SYG SL PRN ×2 (09:33→18:09)
--- NOTE | 2018-10-02 10:25 | AcuteCareSurgery Progress Note ---
Date of Encounter: 10/02/18 Time of Encounter: 07:45 - Assessment and Plan (1) Small bowel obstruction Current Visit: Yes Status: Acute REsolved. D/c NG, ADAT. Surgery will sign off, please call or reconsult if questions or needs arise. Subjective Narrative: Denies nausea. Reports chronic pain, flatus, no BM Objective Vital Signs - Last 8 Hours Temp Pulse Resp BP Pulse Ox 10/02/18 07:22 98.5 F 73 18 167/92 93 10/02/18 04:27 98.1 F 67 18 163/87 92 Intake and Output 10/01/18 10/02/18 10/02/18 23:59 07:59 15:59 Intake Total 0 / 0 Output Total 0 / 0 Balance 0 / 0 Intake: Oral 0 / 0 Output: Urine 0 / 0 - General physical appearance no distress - ENT atraumatic, normocephalic - Respiratory normal expansion, normal respiratory effort - Cardiovascular Cardiovascular exam: Present: RRR - Abdomen Abdomen: Present: bowel sounds present, soft, non tender - Labs 10/02/18 07:03 10/02/18 07:03 Diabetes panel 10/02/18 Range/Units 07:03 Sodium 136 (136-145) mEq/L Potassium 3.1 L (3.5-5.1) mEq/L Chloride 103 (98-107) mEq/L Carbon Dioxide 23 (23-29) mEq/L BUN 19 (6-20) mg/dL Creatinine 0.78 (0.60-1.20) mg/dL Glucose 97 (70-105) mg/dL Calcium 9.2 (8.6-10.3) mg/dL Calcium panel 10/02/18 Range/Units 07:03 Calcium 9.2 (8.6-10.3) mg/dL Pituitary panel 10/02/18 Range/Units 07:03 Sodium 136 (136-145) mEq/L Potassium 3.1 L (3.5-5.1) mEq/L Chloride 103 (98-107) mEq/L Carbon Dioxide 23 (23-29) mEq/L BUN 19 (6-20) mg/dL Creatinine 0.78 (0.60-1.20) mg/dL Glucose 97 (70-105) mg/dL Calcium 9.2 (8.6-10.3) mg/dL Adrenal panel 10/02/18 Range/Units 07:03 Sodium 136 (136-145) mEq/L Potassium 3.1 L (3.5-5.1) mEq/L Chloride 103 (98-107) mEq/L Carbon Dioxide 23 (23-29) mEq/L BUN 19 (6-20) mg/dL Creatinine 0.78 (0.60-1.20) mg/dL Glucose 97 (70-105) mg/dL Calcium 9.2 (8.6-10.3) mg/dL Consult Discharge Plan - Plan Referrals: Elfego Dorantes MD [Primary Care Provider] -
--- NOTE | 2018-10-02 12:24 | Internal Med Progress Note ---
Hospitalist Progress Note - Encounter Date of Encounter: 10/02/18 Time of Encounter: 10:30 - Subjective Interval History: Tolerated clear liquid diet yesterday while having NGT clamped. No chest pain, SOB, or diarrhea. - Exam Vitals: Temp Pulse Resp BP Pulse Ox 98.9 F 70 18 161/94 95 10/02/18 12:18 10/02/18 12:18 10/02/18 12:18 10/02/18 12:18 10/02/18 12:18 Exam: General: not in distress. Respiratory exam: CTAB. no accessory muscle use, rales, rhonchi, wheezes Cardiovascular exam: RRR, +S1, +S2. no murmur, gallop, rubs. GI/Abdominal exam: Minimal LLQ tenderness without rebound/guarding/rigidity. Non-distended, normal bowel sounds, soft. Extremities exam: no pedal edema, pulses palpable in b/l lower extremities. no calf tenderness Neurological exam: CN II-XII intact, AO X3, no focal deficits. - Assessment and Plan (1) Small bowel obstruction Current Visit: Yes Status: Acute Assessment and Plan: distal SBO vs. ileus from chronic opioid use, improving appreciate surgery consult, NGT to be removed today advance diet tonight, if she does well today, will discharge her home tomorrow replete K+ (2) HIV (human immunodeficiency virus infection) Current Visit: Yes Status: Chronic Assessment and Plan: resume home meds (3) Hepatitis Current Visit: No Status: Chronic Assessment and Plan: resume home meds (4) Tobacco abuse Current Visit: No Status: Chronic Assessment and Plan: counseling provided NRT (5) Hypercalcemia Current Visit: Yes Status: Resolved (6) DVT prophylaxis Current Visit: Yes Status: Acute Assessment and Plan: EPCD - Time Spent with Patient Total time spent is greater than 50% in coordination of care (as documented) at patient's floor/unit and/or counseling patient: 25 - 35 minutes Plan of Care Discussed with: patient Internal Medicine: Result - Labs CBC & Chem 7: 10/02/18 07:03 10/02/18 07:03 Labs: Short CBC 10/02/18 Range/Units 07:03 WBC 8.8 (4.3-11.1) K/mcL Hgb 14.8 (11.5-15.4) g/dL Hct 42.3 (35.3-44.9) % Plt Count 183 (140-400) K/mcL Neutrophils # 5.8 (1.6-8.9) K/mcL BMP 10/02/18 07:03 Sodium 136 Potassium 3.1 L Chloride 103 Carbon Dioxide 23 BUN 19 Creatinine 0.78 Glucose 97 Calcium 9.2 - ABG Interpretation ABG results: PT/INR, D-dimer PT 11.2 Seconds (9.4-12.1) 10/01/18 06:59 Consult Discharge Plan - Plan Referrals: Elfego Dorantes MD [Primary Care Provider] - (2) HIV (human immunodeficiency virus infection) Qualifiers: HIV symptom status: asymptomatic Qualified Code(s): Z21 - Asymptomatic human immunodeficiency virus [HIV] infection status
[2018-10-02] MEDS: (Dextroamphetamine/Amphetamine [Adderall 20 Mg Tablet PO SCH ×2 (13:24→21:02)
[2018-10-02] MEDS: RILPIVIRINE PO SCH (13:25)
[2018-10-02] MEDS: DOLUTEGRAVIR PO SCH (13:25)
[2018-10-02] MEDS: *HR* LORazepam 1 MG TABLET PO SCH (13:31)
[2018-10-03] MEDS: MORPHINE SUL Oral CONC 10 MG/0.5 ML ORAL.SYG SL PRN ×3 (00:44→14:39)
[2018-10-03 05:21] LABS: Hematocrit 44.4 % (35.3-44.9); Hemoglobin 15.3 g/dL (11.5-15.4); Mean Corpuscular HGB Conc 34.5 g/dL (31.6-35.5); Mean Corpuscular Volume 95.7 fL (83.0-100.0); Mean Platelet Volume 10.1 fL (9.4-12.4); Platelet Count 191 K/mcL (140-400); Red Blood Count 4.64 M/mcL (3.82-4.97); Red Cell Distribution Width 12.5 % (11.5-14.5); White Blood Count 5.8 K/mcL (4.3-11.1)
[2018-10-03 05:39] LABS: BUN/Creatinine Ratio 28 (6-26); Blood Urea Nitrogen 24 mg/dL (6-20); Calcium 8.9 mg/dL (8.6-10.3); Carbon Dioxide 23 mEq/L (23-29); Chloride 104 mEq/L (98-107); Glucose 95 mg/dL (70-105); Magnesium 2.1 mg/dL (1.6-2.6); Osmolality,Calculated 286 (280-300); Potassium 3.6 mEq/L (3.5-5.1); Sodium 136 mEq/L (136-145); eGFR For African Americans > 60 (> 60); eGFR For Non-African Americans > 60 (> 60)
[2018-10-03] MEDS: Pantoprazole 40 MG VIAL IVP SCH ×2 (05:56→16:31)
[2018-10-03] MEDS: Nicotine 21 MG PATCH.TD24 TD SCH (08:36)
[2018-10-03] MEDS: Spironolactone 25 MG TABLET PO SCH (08:38)
[2018-10-03] MEDS: (Dextroamphetamine/Amphetamine [Adderall 20 Mg Tablet PO SCH (08:38)
[2018-10-03] MEDS: *HR* LORazepam 1 MG TABLET PO SCH ×2 (08:38→13:59)
[2018-10-03] MEDS: RILPIVIRINE PO SCH (08:38)
[2018-10-03] MEDS: DOLUTEGRAVIR PO SCH (08:38)
--- NOTE | 2018-10-03 09:43 | Discharge Summary ---
- NOTES TO OUTPATIENT PROVIDER Notes to Outpatient Provider: Follow up with surgery when necessary Orders not resulted at time of discharge: Pending orders 09/30/18 12:04 Culture,Blood [] Stat Date of Encounter: 10/03/18 Time of Encounter: 07:45 - Discharge Diagnosis (1) Small bowel obstruction Priority: Primary Status: Acute (2) HIV (human immunodeficiency virus infection) Priority: Secondary Status: Chronic Qualifiers: HIV symptom status: asymptomatic Qualified Code(s): Z21 - Asymptomatic human immunodeficiency virus [HIV] infection status (3) Hepatitis Priority: Secondary Status: Chronic (4) Tobacco abuse Priority: Secondary Status: Chronic (5) Hypercalcemia Priority: Secondary Status: Resolved (6) DVT prophylaxis Priority: Secondary Status: Acute Hospital course: Ms. Riddle is a 58 year old female with history of HIV, multiple abdominal surgeries, chronic pain on long-term opioids, who was admitted for abdominal vimal n associated with nausea. She was found to have developing distal small bowel obstruction and was managed conservatively with surgical consultation. Required NGT insertion as well. She clinically improved and NGT was subsequently taken out on 10/02 with successful advancement of her diet. She will be discharged on bowel regimen and was also advised to speak to her pain doc to adjust her opioids if possible. PRN surgery follow up as outpatient. Discharge discussed with: patient, nurse, compliance consultant - Time Spent with Patient Total time spent providing and/or coordinating discharge services: 29 mins - Discharge Medications Prescriptions: New Docusate [Colace] 100 mg PO BID #30 capsule Polyethylene Glycol 3350 [MiraLAX] 17 gm PO DAILY #14 powd.pack Continued LORazepam [Ativan] 1 mg PO BID Vortioxetine Hydrobromide [Trintellix] 10 mg PO DAILY Albuterol Sulfate [Proventil Hfa] 2 puff IH Q4H PRN PRN Reason: Wheezing Dextroamphetamine/Amphetamine [Adderall 20 mg Tablet] 20 mg PO BID Morphine Sulfate SR (12 HR) [MS Contin] 30 mg PO Q8H Dolutegravir/Rilpivirine [Juluca 50-25 mg Tablet] 1 tab PO DAILY Spironolactone [Aldactone] 12.5 mg PO DAILY LORazepam [Ativan] 2 mg PO HS Indapamide [Lozol] 1.25 mg PO DAILY Home Medications: LORazepam [Ativan] 1 mg PO BID 07/28/15 [History] Vortioxetine Hydrobromide [Trintellix] 10 mg PO DAILY 03/17/17 [History] Albuterol Sulfate [Proventil Hfa] 2 puff IH Q4H PRN 09/30/18 [History] Dextroamphetamine/Amphetamine [Adderall 20 mg Tablet] 20 mg PO BID 10/01/18 [History] Dolutegravir/Rilpivirine [Juluca 50-25 mg Tablet] 1 tab PO DAILY 10/01/18 [History] Indapamide [Lozol] 1.25 mg PO DAILY 10/01/18 [History] LORazepam [Ativan] 2 mg PO HS 10/01/18 [History] Morphine Sulfate SR (12 HR) [MS Contin] 30 mg PO Q8H 10/01/18 [History] Spironolactone [Aldactone] 12.5 mg PO DAILY 10/01/18 [History] Docusate [Colace] 100 mg PO BID #30 capsule 10/03/18 [Rx] Polyethylene Glycol 3350 [MiraLAX] 17 gm PO DAILY #14 powd.pack 10/03/18 [Rx] Allergies/Adverse Reactions: Allergy/AdvReac Type Severity Reaction Status Date / Time Warfarin Allergy Severe See Verified 03/17/17 20:34 Comments trazodone Allergy Unknown Swelling Verified 03/17/17 20:34 of Lip/Tongue/Throat gabapentin [From Neurontin] Allergy Dizziness Verified 03/17/17 20:34 nalbuphine [From Nubain] Allergy Irritable Verified 03/17/17 20:34 Naloxone [From Narcan] Allergy Rash Verified 03/17/17 20:34 acetaminophen [From Tylenol] AdvReac Unknown cannot Verified 03/17/17 20:34 take due to status of liver Date of admission: 09/30/18 13:29 Primary care physician: Elfego Dorantes MD Consults: 09/30/18 11:07 Consult to Surgery [CONS] Stat Consulting Provider: [facility] Reason for Consult: small bowel obstruction Call Completed: Yes 10/01/18 07:23 Consult to Infectious Diseases [CONS] Routine Consulting Provider: Infectious Disease [facility] Reason for Consult: h/o HIV Call Completed: No 10/01/18 18:29 Consult to Invasive Line Access Team [CONS] Routine Reason for Consult: limited IV access Line Type: EPIV PICC line indications: Limited vascular access - Constitutional Vitals: Temp Pulse Resp BP Pulse Ox 98.3 F 62 16 145/86 95 10/03/18 06:31 10/03/18 06:31 10/03/18 06:31 10/03/18 06:31 10/03/18 06:31 General appearance: Present: cachectic, A&O X 3 Exam: General: not in distress. Respiratory exam: CTAB. no accessory muscle use, rales, rhonchi, wheezes Cardiovascular exam: RRR, +S1, +S2. no murmur, gallop, rubs. GI/Abdominal exam: Minimal LLQ tenderness without rebound/guarding/rigidity. Non-distended, normal bowel sounds, soft. Extremities exam: no pedal edema, pulses palpable in b/l lower extremities. no calf tenderness Neurological exam: CN II-XII intact, AO X3, no focal deficits. - Patient Status Disposition: Home, Self-Care Condition: Fair Functional capacity at discharge: independent ambulation - Discharge Instructions Follow Up With: Elfego Dorantes MD [Primary Care Provider] - - Diet and Activity Activity: resume usual activities as tolerated Diet: advance to your usual diet
[2018-10-03] MEDS ORDERED: Ondansetron ODT 4 MG TAB.RAPDIS SL PRN (13:24)
[2018-10-03 14:32] VITALS: BP 103/66
== END 2018-10-03 17:58 | disposition home or self-care (01) ==
LOC: 3ANU 09:04 → EMEROOARM 09:04 → SUATTDRO 13:29 → 3ANU 14:05
PROVIDERS: ADMIT Internal Medicine Nephrology; ATTEND Internal Medicine

== ENCOUNTER 2019-01-02 17:48 | Observation (INO) ==
[2019-01-02] MEDS ORDERED: Metoclopramide 10 MG/2 ML VIAL IVP ONE (18:06)
[2019-01-02 18:46] LABS: Basophils # 0.1 K/mcL (0.0-0.2); Basophils % 0.4 %; Eosinophils # 0.1 K/mcL (0.0-0.6); Eosinophils % 0.7 %; Hematocrit 46.8 % (35.3-44.9); Hemoglobin 16.3 g/dL (11.5-15.4); Immature Granulocytes % 0.5 % (0-4); Lymphocytes # 2.9 K/mcL (0.6-4.6); Mean Corpuscular HGB Conc 34.8 g/dL (31.6-35.5); Mean Corpuscular Hemoglobin 34.1 pg (28.0-33.3); Mean Corpuscular Volume 97.9 fL (83.0-100.0); Mean Platelet Volume 9.5 fL (9.4-12.4); Monocytes # 0.9 K/mcL (0.0-1.3); Monocytes % 5.9 %; Platelet Count 267 K/mcL (140-400); Red Blood Count 4.78 M/mcL (3.82-4.97); Red Cell Distribution Width 13.2 % (11.5-14.5); Segmented Neutrophils % 74.5 %
[2019-01-02 18:53] LABS: INR 0.9; Prothrombin Time 10.1 Seconds (9.4-12.1)
[2019-01-02 18:55] LABS: Activated Partial Thrombo Time 31.9 Seconds (26.0-36.0); BUN/Creatinine Ratio 32 (6-26); Blood Urea Nitrogen 36 mg/dL (6-20); Carbon Dioxide 29 mEq/L (23-29); Chloride 101 mEq/L (98-107); Glucose 173 mg/dL (70-105); Osmolality,Calculated 302 (280-300); Potassium 3.9 mEq/L (3.5-5.1); Sodium 140 mEq/L (136-145); eGFR For African Americans > 60 (> 60); eGFR For Non-African Americans 50 (> 60)
[2019-01-02 18:56] LABS: Troponin I < 0.03 ng/mL (< 0.04)
[2019-01-02] MEDS ORDERED: Aspirin 81 MG TAB.CHEW PO STA (20:08)
[2019-01-02] MEDS ORDERED: 0.9 % Sodium Chloride 1,000 ML IVC ONE (20:27)
[2019-01-02] MEDS ORDERED: Isovue-370 500 ML BOTTLE IVP ONE (20:43)
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
[2019-01-02 22:59] LABS: Bilirubin,Urine Negative (Negative); Blood,Urine Negative (Negative); Clarity,Urine Clear (Clear); Color,Urine Yellow (Yellow); Glucose,Urine (UA) Normal (Normal); Ketones,Urine Negative (Negative); Leukocyte Esterase,Urine Moderate (Negative); Nitrite,Urine Negative (Negative); Protein,Urine Trace mg/dL (Neg-Trace); Specific Gravity,Urine > 1.030 (1.010-1.025); Urobilinogen,Urine Normal (Normal)
[2019-01-02 23:06] LABS: Bacteria,Urine None Seen per hpf (None-Few); Hyaline Casts,Urine None Seen per lpf (None-Few); RBC,Urine 0-3 per hpf (0-3); Squamous Epithelial Cell,Urine Many per lpf (None-Few); WBC,Urine 15-30 per hpf (0-3)
[2019-01-02 23:16] LABS: Amphetamine Screen,Urine Negative ng/mL (Cutoff=1000); Barbiturate Screen,Urine Negative ng/mL (Cutoff=200); Benzodiazepines Screen,Urine Positive ng/mL (Cutoff=200); Cannabinoid Screen,Urine Negative ng/mL (Cutoff = 50); Cocaine Screen,Urine Negative ng/mL (Cutoff= 300); Opiate Screen,Urine Negative ng/mL (Cutoff=300); Phencyclidine Screen,Urine Negative ng/mL (Cutoff=25)
[2019-01-03] MEDS ORDERED: Naloxone 0.4 MG/ML INJ IVP PRN (03:35)
--- NOTE | 2019-01-03 03:49 | Internal Med History&Physical ---
Date of Encounter: 01/03/19 Time of Encounter: 02:48 Internal Medicine - H&P: HPI Chief complaint: Headache Admitted From: Emergency Dept Plans for Post Hospital Care: Home History of present illness: Ms. Riddle is a 58 year old female Patient presented to the emergency department for headache. She states that she went to the [facility] [address] to obtain buprenorphine as she has been trying to stop her morphine use. She says while she was at the clinic she felt fine after taking the medicine she developed a headache and neck pain about one hour later. She also had elevated blood pressure. Upon arrival to the emergency department she had some vomiting and central chest pain. Emergency department vital signs: Temperature 96.5, pulse 91, respiratory 18, blood pressure 182/103, O2 saturation 95% on 2 L CBC: White count 16, hemoglobin 16.3, platelets 267 BMP unremarkable, glucose 173 INR 0.9 Initial troponin undetectable Urinalysis: Elevated specific gravity, moderate leukocyte esterase, 15-30 white blood cells. Urine tox screen positive for buprenorphine and benzodiazepines. Head CT IMPRESSION: Focal area of hypodensity within the rightward aspect of katie which is not visualized previously. That could be artifactual from streak artifact, but correlate with any clinical evidence of subacute brainstem ischemia. Otherwise, no acute abnormality identified. Chest x-ray showed no acute process CT angiogram head and neck IMPRESSION: Atherosclerotic changes at the carotid bifurcations without hemodynamically significant narrowing. Unremarkable CTA head. EKG: Sinus rhythm, rate 83, QTC 440 ms. No ischemic changes Emergency department patient received aspirin, and 10 mg of Reglan. Initial con cerns for possible stroke however there were no neurological findings. Consult placed to neurology was made, recommended MRI in the morning. She was admitted hospital for further observation. Upon my evaluation, patient is resting comfortably in the hospital bed in no acute distress. She denies chest pain, abdominal pain, nausea, vomiting, diarrhea and constipation. She did have some chest pain with upper abdominal pain but this is resolved. She has some dizziness with movement of her eyes but is not present when she does not move her head. She had vomiting upon arrival to the ER, but none since. She has a history of a brain bleed as well as aneurysm. She had been on blood thinners in the past for history of blood clots but has not been on these medicines recently. She denies alcohol use but does smoke 1-1/2 packs of cigarettes daily. She is been taking morphine for many years due to chronic pain. She is a full code. Past Med Surg Social Fam HX - Past Medical History Medical history: COPD, CVA, HIV/AIDS, liver disease, renal disease, seizures Additional medical history: SVC syndrome, stent placed Psychiatric history: anxiety, ADHD, depression, PTSD - Past Surgical History Surgical History: appendectomy, cholecystectomy (2009), hysterectomy (Total 1989), knee replacement, other (Bowel surgery ??) Additional surgical history: seven knee surgeries - Social History Smoking Status: Current every day smoker Smokeless Tobacco Status: No Alcohol use: none Drug use: none - Family History Father Hx Family Endocrine Disorder: Yes (Diabetes) Hx Family Neurologic Disorders: Yes (Stroke) Mother Hx Family Respiratory Disorders: Yes (Lung cancer) Internal Medicine - H&P: Meds LORazepam [Ativan] 1 mg PO BID PRN 07/28/15 [History] Dextroamphetamine/Amphetamine [Adderall 20 mg Tablet] 20 mg PO BID 10/01/18 [History] Dolutegravir/Rilpivirine [Juluca 50-25 mg Tablet] 1 tab PO DAILY 10/01/18 [History] LORazepam [Ativan] 2 mg PO HS 10/01/18 [History] Spironolactone [Aldactone] 12.5 mg PO DAILY 10/01/18 [History] Ketoconazole 2% CRM [Nizoral Cream] 1 appl DAILY 10/10/18 [History] Mupirocin Calcium [Bactroban] 1 appl TP TID 10/10/18 [History] Nystatin [Nystatin Suspension] 4 ml PO QID 10/10/18 [History] Promethazine [Phenergan] 12.5 mg PO Q6HR PRN 10/10/18 [History] Vortioxetine Hydrobromide [Trintellix] 20 mg PO DAILY 10/10/18 [History] Allergy/AdvReac Type Severity Reaction Status Date / Time Warfarin Allergy Severe See Verified 12/27/18 00:16 Comments trazodone Allergy Unknown Swelling Verified 12/27/18 00:16 of Lip/Tongue/Throat gabapentin [From Neurontin] Allergy Dizziness Verified 12/27/18 00:16 lisinopril Allergy See Verified 12/27/18 00:16 Comments nalbuphine [From Nubain] Allergy Irritable Verified 12/27/18 00:16 Naloxone [From Narcan] Allergy Rash Verified 12/27/18 00:16 acetaminophen [From Tylenol] AdvReac Unknown cannot Verified 12/27/18 00:16 take due to status of liver All Systems PM: A 10-system review of systems was performed and is negative for pertinent findings except as documented above in the HPI. - Constitutional Vitals: Temp Pulse Resp BP Pulse Ox 98.3 F 76 18 122/83 99 01/03/19 01:30 01/03/19 01:30 01/03/19 01:30 01/03/19 01:30 01/03/19 00:46 General appearance: Present: cooperative, A&O X 3, pleasant, no acute distress, answers questions appropriately Exam: - - Head Head exam: Present: normal inspection - Eye Eye exam: Present: EOMI, normal appearance, PERRL. Absent: nystagmus, scleral icterus - Neck Neck exam general surgery: Present: full ROM. Absent: tenderness - Respiratory Respiratory exam: Present: wheezes. Absent: decreased breath sounds, CTAB, rales, respiratory distress, rhonchi - Cardiovascular Cardiovascular exam: Present: RRR. Absent: diastolic murmur, systolic murmur - GI/Abdominal GI/Abdominal exam: Present: normal bowel sounds, soft. Absent: tenderness - Extremities Exam Extremities exam: Present: warm, radial pulses palpable and symmetrical. Absent: calf tenderness, pedal edema, tenderness - Neurological Exam Neurological exam: Present: alert, CN II-XII intact, oriented X3, no focal deficits, strengths equal and symetr throughout. Absent: altered, motor sensory deficit, facial droop, speech deficit - Skin Skin exam: Present: dry, normal color, warm Internal Med - H&P Results - Labs CBC & Chem 7: 01/02/19 18:15 01/02/19 18:15 Labs: Short CBC 01/02/19 Range/Units 18:15 WBC 16.0 H (4.3-11.1) K/mcL Hgb 16.3 H (11.5-15.4) g/dL Hct 46.8 H (35.3-44.9) % Plt Count 267 (140-400) K/mcL Neutrophils # 12.0 H (1.6-8.9) K/mcL BMP 01/02/19 18:15 Sodium 140 Potassium 3.9 Chloride 101 Carbon Dioxide 29 BUN 36 H Creatinine 1.11 Glucose 173 H Calcium 10.0 Cardiac Enzymes 01/02/19 Range/Units 18:15 Troponin I < 0.03 (< 0.04) ng/mL Urine 01/02/19 Range/Units 22:50 Urine Color Yellow (Yellow) Urine Clarity Clear (Clear) Urine pH 6.0 (5.0-8.0) pH Units Ur Specific [place] > 1.030 H (1.010-1.025) Urine Protein Trace (Neg-Trace) mg/dL Urine Glucose (UA) Normal (Normal) mg/dL - Impressions ITS Impressions Chest X-Ray 01/02/19 18:30 IMPRESSION: No acute cardiopulmonary process D/ / Josiah Ignacio / Josiah Ignacio Interpreting Provider: Josiah Ignacio Head CT 01/02/19 18:59 IMPRESSION: Focal area of hypodensity within the rightward aspect of katie which is not visualized previously. That could be artifactual from streak artifact, but correlate with any clinical evidence of subacute brainstem ischemia. Otherwise, no acute abnormality identified. D/ / Uri Olvera MD / Uri Olvera MD Interpreting Provider: Uri Olvera MD Head CTA 01/02/19 22:27 IMPRESSION: Atherosclerotic changes at the carotid bifurcations without hemodynamically significant narrowing. Unremarkable CTA head. D/ / Oskar Little MD / Oskar Little MD Interpreting Provider: Oskar Little MD Neck CTA 01/02/19 22:27 IMPRESSION: Atherosclerotic changes at the carotid bifurcations without hemodynamically significant narrowing. Unremarkable CTA head. D/ / Oskar Little MD / Oskar Little MD Interpreting Provider: Oskar Little MD - Assessment and Plan (1) Headache Current Visit: Yes Status: Acute Assessment and plan: Initially presented with headache, did improve after medications. CT had showed a focal area of hypodensity in the katie that could be artifact but also could be a brainstem ischemia. Neurology consult the will see the patient in the morning. Follow-up neurology consult MRI in the morning Pain management as needed, avoid opioid medications Qualifiers: Headache type: unspecified Headache chronicity pattern: acute headache Intractability: not intractable Qualified Code(s): R51 - Headache (2) Brainstem stroke Current Visit: Yes Status: Acute Assessment and plan: As seen on CT, unclear artifact or actual ischemic infarct. No obvious neurological deficits on exam. Follow-up neurology recommendations MRI in the morning (3) Opioid withdrawal Current Visit: Yes Status: Acute Assessment and plan: Initial presentation to the emergency department concerning for possible opioid withdrawal, possibly brought on by buprenorphine and given to her at the clinic, though it is unclear the timing of her last dose of morphine. Patient has history of morphine use for chronic pain. She has been trying to quit. No withdrawal symptoms currently. Continue to monitor (4) Nausea & vomiting Current Visit: No Status: Acute Assessment and plan: Present in the emergency department, now resolved. Patient received 10 mg of Reglan in the ER. Continue to monitor Qualifiers: Vomiting type: bilious vomiting Qualified Code(s): R11.14 - Bilious vomiting (5) Tobacco abuse Current Visit: No Status: Chronic Assessment and plan: Nicotine patch (6) DVT prophylaxis Current Visit: No Status: Acute Assessment and plan: SCDs - Time Spent With Patient Total time spent is greater than 50% in coordination of care (as documented) at patient's floor/unit and/or counseling patient:
[2019-01-03] MEDS ORDERED: Ibuprofen 600 MG TABLET PO PRN (03:52)
[2019-01-03] MEDS: Nicotine 21 MG PATCH.TD24 TD SCH (05:36)
[2019-01-03 05:50] LABS: Mean Corpuscular Hemoglobin 33.4 pg (28.0-33.3); Mean Corpuscular Volume 98.3 fL (83.0-100.0); Mean Platelet Volume 9.4 fL (9.4-12.4); Platelet Count 222 K/mcL (140-400); Red Blood Count 4.07 M/mcL (3.82-4.97); Red Cell Distribution Width 13.3 % (11.5-14.5)
[2019-01-03 05:57] LABS: BUN/Creatinine Ratio 38 (6-26); Blood Urea Nitrogen 31 mg/dL (6-20); Calcium 9.2 mg/dL (8.6-10.3); Carbon Dioxide 26 mEq/L (23-29); Chloride 104 mEq/L (98-107); Glucose 105 mg/dL (70-105); Osmolality,Calculated 293 (280-300); Potassium 4.2 mEq/L (3.5-5.1); Sodium 138 mEq/L (136-145); eGFR For African Americans > 60 (> 60); eGFR For Non-African Americans > 60 (> 60)
[2019-01-03 05:58] LABS: Troponin I < 0.03 ng/mL (< 0.04)
[2019-01-03 06:19] LABS: Hemoglobin 13.6 g/dL (11.5-15.4); White Blood Count 6.8 K/mcL (4.3-11.1)
[2019-01-03] MEDS ORDERED: *HR* Promethazine 25 MG/ML VIAL IVP PRN (08:06)
[2019-01-03] MEDS ORDERED: Aspirin Enteric Coated 81 MG Tablet PO SCH (09:00)
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
[2019-01-03] MEDS: Spironolactone 25 MG TABLET PO SCH (10:47)
[2019-01-03] MEDS: Ketorolac 30 MG/ML VIAL IVP PRN (10:48)
[2019-01-03] MEDS: *HR* Heparin 5,000 UNIT/ML VIAL SQ SCH ×2 (13:51→22:33)
[2019-01-03] MEDS ORDERED: Ketorolac 30 MG/ML VIAL IVP ONE (14:39)
[2019-01-03] MEDS: Dolutegravir/Rilpivirine [Juluca 50-25 Mg Tablet] PO SCH (14:55)
[2019-01-03] MEDS ORDERED: Isovue-370 500 ML BOTTLE IVP ONE (15:12)
[2019-01-03] MEDS ORDERED: 0.9 % Sodium Chloride 1,000 ML IVC SCH (15:15)
[2019-01-03] MEDS ORDERED: Nitroglycerin 0.4 MG TAB.SUBL SL PRN (15:18)
--- NOTE | 2019-01-03 15:19 | Event Note ---
Date of Encounter: 01/03/19 Time of Encounter: 15:13 I have seen and evaluated the patient at bedside. patient reporting pressure like 6/10, non-radiating chest pain, associated with mild shortness of breath. JVD about 10cm on physical exam. Hx of SVC, and extrensive thrombosis in 2010, with negative work up. Patient previously recommended to be on plavix per Oncology outpatient note, but has been off the medication. serial trops, TTE ordered CTA chest ordered started on gentle IV hydration as patient has received multiple dose of contrast for imagine study. Pending MRI. will continue to follow up.
--- NOTE | 2019-01-03 17:32 | Electrocardiograph Report ---
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
[2019-01-03] MEDS ORDERED: *HR* LORazepam 1 MG TABLET PO ONE (21:30)
[2019-01-04] MEDS: Ketorolac 30 MG/ML VIAL IVP PRN (04:31)
[2019-01-04] MEDS: *HR* Heparin 5,000 UNIT/ML VIAL SQ SCH ×3 (06:36→21:24)
--- NOTE | 2019-01-04 09:09 | Neurology Progress Note ---
Date of Encounter: 01/04/19 Time of Encounter: 09:06 Assessment and Plan (1) Brainstem stroke Current Visit: Yes Status: Suspected Seen in follow up for dizziness, nausea, diplopia, left arm weakness; with the exception of dizziness all symptoms have resolved Suspect her symptoms were the result of morphine withdrawal and the accompanied accelerated hypertension; BP stable today Workup including CT angiogram head and neck and MRI was negative for acute infarct, PAPER INSPECTOR inflammation, vasculitis or hemorrhage Again, recent LP completed 12/25/18 with negative CSF studies Neurologically she is intact without any focal findings Recommending follow-up with PCP and [facility] for further management regards to transitioning from morphine to Suboxone Okay to continue Plavix 75 mg daily and continuing with statin therapy Symptomatic treatment of headaches Otherwise continue medical and supportive care Neurology will sign off at this time Subjective Principal diagnosis: Neuro symptoms Interval history: The patient is seen in follow-up for dizziness, nausea, binocular diplopia and left arm weakness. This morning she is alert and oriented 3, resting comfortably in bed and denies any nausea, arm weakness or diplopia. However, she states that the dizziness persists. Overall however she admits that she feels better since her blood pressure is improved. I explained that I suspect her symptoms are most likely result of morphine withdrawal and that she should follow-up with her PCP and [facility] upon d/c for further management. Clinically, she remained stable and denies any new complaints. Objective - Constitutional Vitals: Temp Pulse Resp BP Pulse Ox 97.9 F 60 14 135/89 96 01/04/19 06:45 01/04/19 06:45 01/04/19 06:45 01/04/19 06:45 01/04/19 06:45 Exam: Examination: General Examination: *CONSTITUTIONAL: Alert and oriented x3, no acute distress *GENERAL APPEARANCE OF PATIENT overall appears healthy and well groomed *EYES: pupils equal, round, reactive to light and accommodation, conjunctiva clear without masses or ulcerations, fundi normal. *CARDIOVASCULAR: no peripheral edema, distal temperature normal, dorsalis pedis pulses normal. Refer to vital signs * MUSCULOSKELETAL: *GAIT AND STATION: Deferred *ASSESSMENT OF MUSCLE STRENGTH IN THE UPPER AND LOWER EXTREMITIES left deltoid, bicep, tricep 4/5, director of retention strength 5/5 right deltoid, bicep, tricep, director of retention strength 5/5, bilateral hip flexors ,anterior tibialis, dorsoflexion of the foot 5/5 *MUSCLE TONE IN THE UPPER AND LOWER EXTREMITIES normal. No abnormal movements, fasciculations or atrophy identified. Neurological: *ORIENTATION to person, situation, time and place *LANGUAGE AND FUNCTION no significant aphasia or dysarthia was noted. *ATTENTION AND CONCENTRATION are normal *LANGUAGE FUNCTION no significant aphasia or dysarthia was noted. *FUND OF KNOWLEDGE aware of current events, past history, vocabulary *MENTAL attention span and concentration normal. *CN II optic fundi were normal, no papilledema noted. *CN III,IV, PERRLA extraocular eye movements were full, no nystagmus and no ptosis noted. *CN V shows normal sensation and jaw opens symmetrically. *CN VII shows normal facial movement symmetrically, upper and lower bilaterally. *CN VIII shows no significant hearing loss on exam *CN IX-X palate elevated symmetrically *CN XI normal strength in the sternocleidomastoid muscles, symmetrical shoulder shrugging. *CN XII tongue protruded in the midline, with normal strength and movement. *SENSORY EXAMINATION light touch intact *REFLEXES: deep tendon reflexes were 1/4 diffusely, no pathological reflexes were noted. *CEREBELLAR TESTING dysmetria with left finger to nose exam *PAIN LEVEL 2/10 headache Results - Laboratory Findings CBC and BMP: 01/03/19 05:06 01/03/19 05:06 Abnormal lab findings: Abnormal lab results WBC 16.0 K/mcL (4.3-11.1) H 01/02/19 18:15 Hgb 16.3 g/dL (11.5-15.4) H 01/02/19 18:15 Hct 46.8 % (35.3-44.9) H 01/02/19 18:15 MCH 33.4 pg (28.0-33.3) H 01/03/19 05:06 Neutrophils # 12.0 K/mcL (1.6-8.9) H 01/02/19 18:15 BUN 31 mg/dL (6-20) H 01/03/19 05:06 Est GFR (Non-Af Amer) 50 (> 60) L 01/02/19 18:15 BUN/Creatinine Ratio 38 (6-26) H 01/03/19 05:06 Glucose 173 mg/dL (70-105) H 01/02/19 18:15 Calculated Osmolality 302 (280-300) H 01/02/19 18:15 Ur Specific [place] > 1.030 (1.010-1.025) H 01/02/19 22:50 Ur Leukocyte Esterase Moderate (Negative) H 01/02/19 22:50 Urine Microscopic WBC 15-30 per hpf (0-3) H 01/02/19 22:50 Ur Squamous Epith Cells Many per lpf (None-Few) H 01/02/19 22:50 Ur Culture Indicated? YES (NO) A 01/02/19 22:50 Ur Buprenorphine Scrn Positive ng/mL (Cutoff=5) H 01/02/19 22:50 U Benzodiazepines Scrn Positive ng/mL (Lwoydc=585) H 01/02/19 22:50 Consult Discharge Plan - Plan Referrals: Elfego Dorantes MD [Primary Care Provider] -
[2019-01-04] MEDS: Spironolactone 25 MG TABLET PO SCH (09:28)
[2019-01-04] MEDS: Nicotine 21 MG PATCH.TD24 TD SCH (09:29)
[2019-01-04] MEDS: Dolutegravir/Rilpivirine [Juluca 50-25 Mg Tablet] PO SCH (09:29)
[2019-01-04] MEDS ORDERED: *HR* Buprenorphine HCl 8 MG TAB.SUBL SL SCH (10:45)
--- NOTE | 2019-01-04 10:57 | Electrocardiograph Report ---
[place] [id number] Test Date: 2019-01-03 Pat Name: Rossy Riddle Department: 111 Room: 2NE26 Gender: F Public Service Officer: : 1960 Requested By: Chaka Tilley Order Number: [id number] Reading MD: Donis Tellez Measurements Intervals [place] Rate: 65 P: 75 NC: 120 QRS: 68 QRSD: 128 T: 52 QT: 464 QTc: 476 Interpretive Statements SINUS RHYTHM RIGHT BUNDLE BRANCH BLOCK Electronically Signed On 01-04-2019 10:56:19 EDT by Donis Tellez
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
[2019-01-04] MEDS: *HR* Buprenorphine HCl 8 MG TAB.SUBL SL SCH (13:15)
[2019-01-04] MEDS ORDERED: *HR* LORazepam 1 MG TABLET PO ONE (21:32)
[2019-01-05] MEDS ORDERED: *HR* LORazepam 1 MG TABLET PO ONE (02:27)
[2019-01-05] MEDS: *HR* Heparin 5,000 UNIT/ML VIAL SQ SCH (05:02)
[2019-01-05 06:01] LABS: BUN/Creatinine Ratio 45 (6-26); Blood Urea Nitrogen 40 mg/dL (6-20); Calcium 8.9 mg/dL (8.6-10.3); Carbon Dioxide 26 mEq/L (23-29); Chloride 106 mEq/L (98-107); Glucose 116 mg/dL (70-105); Magnesium 1.8 mg/dL (1.6-2.6); Osmolality,Calculated 299 (280-300); Phosphorous 4.1 mg/dL (2.7-4.5); Sodium 139 mEq/L (136-145); eGFR For African Americans > 60 (> 60); eGFR For Non-African Americans > 60 (> 60)
[2019-01-05 07:38] VITALS: BP 140/88
[2019-01-05] MEDS: Spironolactone 25 MG TABLET PO SCH (08:43)
[2019-01-05] MEDS: *HR* Buprenorphine HCl 8 MG TAB.SUBL SL SCH (08:45)
[2019-01-05] MEDS: Nicotine 21 MG PATCH.TD24 TD SCH (08:45)
[2019-01-05] MEDS: Dolutegravir/Rilpivirine [Juluca 50-25 Mg Tablet] PO SCH (08:46)
--- NOTE | 2019-01-05 08:57 | Discharge Summary ---
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 Hospital course: Ms. Riddle is a 58 year old female PMH of COPD, CVA, HIV/AIDS, liver disease, SVC syndrome, stent placed, anxiety, ADHD, depression, PTSD. emergency department for headache. She states that she went to the [facility] [place] to obtain buprenorphine as she has been trying to stop her morphine use. She says while she was at the clinic she felt fine after taking the medicine she developed a headache and neck pain about one hour later. In the emergency room patient was found to be hypertensive systolic blood pressure 183/110. A head CT was done Focal area of hypodensity within the rightward aspect of katie which is not visualized previously. Head and neck CTA done: Atherosclerotic changes at the carotid bifurcations without hemodynamically significant narrowing. Unremarkable CTA head. MR head/brain: 1. No acute intracranial abnormality. Specifically, no acute infarction. 2. Mild parenchymal volume loss and minimal chronic microvascular ischemic changes. During these admission patient was managed for opioid withdrawal type symptoms, she was restarted on subutex, with resolution of her acute symptoms on presentation. Patient reported chest pain, JVD of about 10 cm on physical exam. due to her Hx of SCS syndrome and multiple thrombosis in the past a CTA of the chest was ordered: unremarkable. Neurology evaluated the patient and agreed on resuming plavix, which was discontinued about a year ago following a traumatic ICH. Patient acute symptoms on presentation have resolved, and patient is hemodynamically stable to be discharged home. Recommended to follow-up with her subutex clinic. - Time Spent with Patient Total time spent providing and/or coordinating discharge services: Time spent: Greater than 30 minutes (40) - Discharge Medications Prescriptions: New Clopidogrel [Plavix] 75 mg PO DAILY 30 Days #30 tablet Simvastatin [Zocor] 40 mg PO HS 30 Days #30 tablet Continued LORazepam [Ativan] 1 mg PO BID PRN PRN Reason: Anxiety Dextroamphetamine/Amphetamine [Adderall 20 mg Tablet] 20 mg PO BID Dolutegravir/Rilpivirine [Juluca 50-25 mg Tablet] 1 tab PO DAILY Spironolactone [Aldactone] 12.5 mg PO DAILY LORazepam [Ativan] 2 mg PO HS Ketoconazole 2% CRM [Nizoral Cream] 1 appl TP DAILY Promethazine [Phenergan] 12.5 mg PO Q6HR PRN PRN Reason: Nausea Vortioxetine Hydrobromide [Trintellix] 20 mg PO DAILY Mupirocin Calcium [Bactroban] 1 appl TP TID Nystatin [Nystatin Suspension] 4 ml PO QID PRN PRN Reason: IRRITATION Buprenorphine HCl/Naloxone HCl [Suboxone 4 mg-1 mg Sl Film] 12 mg SL DAILY Home Medications: LORazepam [Ativan] 1 mg PO BID PRN 07/28/15 [History] Dextroamphetamine/Amphetamine [Adderall 20 mg Tablet] 20 mg PO BID 10/01/18 [History] Dolutegravir/Rilpivirine [Juluca 50-25 mg Tablet] 1 tab PO DAILY 10/01/18 [History] LORazepam [Ativan] 2 mg PO HS 10/01/18 [History] Spironolactone [Aldactone] 12.5 mg PO DAILY 10/01/18 [History] Ketoconazole 2% CRM [Nizoral Cream] 1 appl TP DAILY 10/10/18 [History] Mupirocin Calcium [Bactroban] 1 appl TP TID 10/10/18 [History] Nystatin [Nystatin Suspension] 4 ml PO QID PRN 10/10/18 [History] Promethazine [Phenergan] 12.5 mg PO Q6HR PRN 10/10/18 [History] Vortioxetine Hydrobromide [Trintellix] 20 mg PO DAILY 10/10/18 [History] Buprenorphine HCl/Naloxone HCl [Suboxone 4 mg-1 mg Sl Film] 12 mg SL DAILY 01/04/19 [History] Clopidogrel [Plavix] 75 mg PO DAILY 30 Days #30 tablet 01/05/19 [Rx] Simvastatin [Zocor] 40 mg PO HS 30 Days #30 tablet 01/05/19 [Rx] Allergies/Adverse Reactions: Allergy/AdvReac Type Severity Reaction Status Date / Time Warfarin Allergy Severe See Verified 12/27/18 00:16 Comments trazodone Allergy Unknown Swelling Verified 12/27/18 00:16 of Lip/Tongue/Throat gabapentin [From Neurontin] Allergy Dizziness Verified 12/27/18 00:16 lisinopril Allergy See Verified 12/27/18 00:16 Comments nalbuphine [From Nubain] Allergy Irritable Verified 12/27/18 00:16 Naloxone [From Narcan] Allergy Rash Verified 12/27/18 00:16 acetaminophen [From Tylenol] AdvReac Unknown cannot Verified 12/27/18 00:16 take due to status of liver Date of admission: 01/02/19 23:13 Primary care physician: Elfego Dorantes MD Consults: 01/02/19 21:29 Consult to Neurology [CONS] Stat Consulting Provider: Neu[facility] Reason for Consult: possible stroke Time Notified: 21:30 Call Completed: Yes 01/03/19 16:10 Consult to Occupational Therapy [CONS] Routine Comment: Evaluate, develop and implement POC Reason for Consult: Per neurology for brainstem stroke Does patient have active BEDREST order?: No Is patient medically & hemodynamically stable?: Yes Consult to Physical Therapy [CONS] Routine Comment: Evaluate, develop and implement POC Reason for Consult: Per neurology for brainstem stroke Does patient have active BEDREST order?: No Is patient medically & hemodynamically stable?: Yes - Constitutional Vitals: Temp Pulse Resp BP Pulse Ox 98.4 F 56 14 140/88 98 01/05/19 07:37 01/05/19 07:37 01/05/19 07:37 01/05/19 07:37 01/05/19 07:37 General appearance: Present: cooperative, A&O X 3, pleasant, no acute distress, answers questions appropriately Exam: Vitals: Reviewed General: Alert and oriented x4. In no acute distress. Cardiovascular: RRR, normal S1 & S2, no rubs, murmurs or gallops. Lungs: CTA b/l, no wheezes or crackles. Abdomen: Soft, non-tender, no rigidity. Extremities: No deformity, no edema or tenderness, no joint swelling or clubbing. Neurological: CN II-XII intact. No focal neurological abnormalities. Rest of the physical exam is non contributory - Patient Status Disposition: Home, Self-Care Condition: Good Functional capacity at discharge: independent ambulation Overall status at discharge: patient is back to baseline - Discharge Instructions Follow Up With: Elfego Dorantes MD [Primary Care Provider] - - Diet and Activity Activity: resume usual activities as tolerated Diet: advance to your usual diet
[2019-01-05] MEDS ORDERED: FLU Vac QV 19-20 (6Month+)/PF 0.5 ML SYRINGE IM ONE (10:51)
== END 2019-01-05 11:48 | disposition home or self-care (01) ==
LOC: EMEROOARM 17:48 → 2NENU 17:48 → SUATTDRO 23:13 → 2NENU 23:40
PROVIDERS: ADMIT Family Medicine; ATTEND Internal Medicine